=== PATIENT | female | born 1935 | race Caucasian/White ===

== ENCOUNTER → 2017-01-05 | Outpatient (CLI) | payer OTHER, BC ==
[~2017-01-05] MED LIST: ALBU1AER9 INH; ARFO15NE NEB; ASPCH81X PO; BTP80 PO; FURO-85 PO; IPRASOL4 INH; KLN5X PO; LEVO88TA PO; LVQ750 PO; SIMV-150 PO; TCMD2 PO; TZCSR180 PO; VENL75TA4 PO; VNTHFA/IN INH; WARF2TAB PO; [UNRECOGNIZED DRUG - SUPPLY]
--- NOTE | 2017-01-05 13:56 | DIAGNOSTIC IMAGING REPORT ---
CHEST CT WITHOUT CONTRAST CT DOSE: 230.01 mGy.cm HISTORY: Dyspnea. Cough. R05 Cough scheduled at [facility] [place] at 2pm/ patient aware and TECHNIQUE: Multiaxial CT images of the chest were performed without contrast. COMPARISON: 02/23/2016 FINDINGS: Appears lungs is similar. Nodularity and/or bronchiectatic changes scattered throughout the right middle and right upper lobe remains similar. Is seen to a lesser extent in the left. Minimal associated nodularity is nonprogressive. There is moderate improvement at the left base as well as right apex. There are no new or interval nodular densities at. Atherosclerotic change thoracic aorta persists. Several small mediastinal nodes are present unchanged from the prior exam. Several small shotty nodes in the axillary regions are unchanged as well. IMPRESSION: 1. No new or interval process compared to the prior study. 2. Scattered chronic nodularity versus bronchiectatic changes as discussed above. This is stable. 3. No new or interval finding. 4. Subtle improvement in nodularity right pulmonary apex and left base Electronically signed by: Abner Harris M.D. 01/05/2017 1:55 PM Dictated Date/Time: 01/05/2017 1:47 PM
== END | disposition home or self-care (01) ==
LOC: C.CTS 13:29
PROVIDERS: ATTEND Physician Assistant
DX: R05 Cough (principal)

== ENCOUNTER 2017-02-11 09:52 | Inpatient (IN) | payer OTHER, BC ==
[~2017-02-11] VITALS: Ht 154.9 cm; Wt 80.6 kg
[~2017-02-11 09:52] MED LIST changes: -ARFO15NE NEB; -LVQ750 PO; -TZCSR180 PO; -VNTHFA/IN INH
[2017-02-11] MEDS ORDERED: ALBUT/IPRATROP 3MG/0.5MG NEB 3 ML VIAL INH STA (10:56)
[2017-02-11] MEDS ORDERED: SODIUM CHLORIDE 0.9% 250ML 250 ML IV STA (10:56)
[2017-02-11] MEDS ORDERED: SODIUM CHLORIDE 0.9% 1000ML 1,000 ML IV STA (10:56)
--- NOTE | 2017-02-11 10:58 | EMERGENCY ROOM VISIT NOTE ---
History Report prepared by Esequiel: Gemma Laird Under the Supervision of: Dr. Yumiko Weir M.D. First contact with patient: 10:47 Chief Complaint: RESPIRATORY PROBLEMS Stated Complaint: TROUBLE BREATHING - COUGH History of Present Illness The patient is a 81 year old female who presents to the Emergency Room with complaints of a severe and persistent cough starting a few days ago. She has been spitting up mucous. She has some shortness of breath. The patient started having an intermittent fever yesterday. She also started having diarrhea yesterday. She reports generalized body aches. The patient denies chest pain, nausea, vomiting, or any other complaints. She has a history of Pulmonary Fibrosis. She uses an inhaler and 2 L oxygen at home. She denies any current steroids or antibiotic use. The patient also has a history of A-Fib. She is on Coumadin. Source of History: patient Onset: a few days ago Position: other (global) Symptom Intensity: severe Quality: other (cough) Timing: other (persistent) Associated Symptoms: + SOB, + diarrhea, + fevers, No chest pain, No nausea, No vomiting Review of Systems See HPI for pertinent positives & negatives. A total of 10 systems reviewed and were otherwise negative. Past Medical & Surgical Medical Problems: (1) Atrial fibrillation with RVR (2) Cough (3) Depressive Disorder Nec (4) Hypertension Nos (5) Shortness Of Breath Family History Cancer Heart disease Kidney disease Social History Smoking Status: Never Smoker Alcohol Use: none Drug Use: none Housing Status: lives alone Occupation Status: retired Current/Historical Medications Scheduled Albuterol Hfa (Ventolin Hfa), 2-4 PUFFS INH Q6H Arformoterol Tartrate (Brovana), 1 VIAL NEB BID Aspirin (Aspirin Chewable), 81 MG PO QAM Clonazepam (Clonazepam), 0.5 TAB PO HS Ipratropium-Albuterol (Duoneb), 1 TREATMENT INH BID Levothyroxine Sodium (Synthroid), 88 MCG PO QAM Simvastatin (Simvastatin), 10 MG PO HS Sotalol HCl (Sotalol HCl), 1 DOSE PO BID Venlafaxine Hcl (Effexor), 75 MG PO QAM Warfarin Sod (Coumadin), 1 TAB PO 2XWK Warfarin Sodium (Coumadin), 1.5 TAB PO 5XWK Scheduled PRN Furosemide (Lasix), 20 MG PO DAILY PRN for LEG SWELLING Allergies Coded Allergies: Iodinated Diagnostic Agents (Verified Allergy, Unknown, HIVES, 02/11/17) Penicillins (Verified Allergy, Unknown, HIVES, 02/11/17) Sulfa Antibiotics (Verified Allergy, Unknown, RASH, 02/11/17) Terfenadine (Verified Allergy, Unknown, HIVES, 02/11/17) Uncoded Allergies: seasonal (Allergy, Unknown, "nasal congestion,sneezing", 09/03/14) Physical Exam Vital Signs Date Time Temp Pulse Resp B/P Pulse Ox O2 Delivery O2 Flow Rate FiO2 02/11/17 13:46 98 20 125/69 91 Nasal Cannula 3.0 02/11/17 12:38 92 22 124/71 90 Nasal Cannula 2.0 02/11/17 11:55 122 20 127/78 92 Nasal Cannula 2.0 02/11/17 11:51 143 135/87 02/11/17 11:42 144 20 145/92 95 Nasal Cannula 2.0 02/11/17 11:39 153 136/102 02/11/17 11:37 152 20 124/99 97 Nebulizer 02/11/17 11:35 94 Nasal Cannula 2.0 02/11/17 11:12 130 02/11/17 11:00 87 Room Air 02/11/17 09:59 37.2 113 24 148/84 91 Room Air Physical Exam Vital signs reviewed. General: Well-appearing, in no significant distress. HEENT: No scleral icterus, PERRLA, neck supple. Atraumatic. Cardiovascular: Regular rate and rhythm, no extra sounds. Pulmonary: Diffuse crackles throughout the bilateral lower lung young, noted to be hypoxic on room air, moist cough. Abdomen: Soft, nontender, nondistended, positive bowel sounds. Musculoskeletal: Atraumatic, mild peripheral edema. Neurologic: Patient awake alert and oriented x 3, full strength in all 4 extremities. Cranial nerves 2 through 12 grossly intact. Skin: Warm, dry, no rash Medical Decision & Procedures ER Provider Diagnostic Interpretation: X-ray results as stated below per interpretation by me and the radiologist: CHEST ONE VIEW PORTABLE HISTORY: cough, pulm fibrosis, hypoxia, fever COMPARISON: Chest CT 01/05/2017. FINDINGS: No pneumothorax or no pleural effusions. The heart is normal in size. Peripheral and basilar reticulonodular thickening persists. This is most pronounced within the right upper lobe. There is progressive hazy opacity within the left lung base. IMPRESSION: Peripheral and basilar reticulonodular interstitial thickening persists and is similar to the prior study. However, there is slight progression of the hazy opacity within the left lung base. This may represent a superimposed pneumonia. Electronically signed by: Mikal Mauricio M.D. 02/11/2017 11:25 AM Dictated Date/Time: 02/11/2017 11:24 AM Laboratory Results Test 02/11/17 11:15 02/11/17 11:22 02/11/17 11:24 Toxic Granulation 1+ Dohle Bodies 1+ Activated Partial Thromboplast Time 57.3 SECONDS (21.0-31.0) Partial Thromboplastin Ratio 2.2 Total Bilirubin 1.1 mg/dl (0.2-1) Direct Bilirubin 0.3 mg/dl (0-0.2) Aspartate Amino Transf (AST/SGOT) 16 U/L (15-37) Alanine Aminotransferase (ALT/SGPT) 15 U/L (12-78) Alkaline Phosphatase 87 U/L (45-117) Total Creatine Kinase 101 U/L (26-192) Creatine Kinase MB 0.9 ng/ml (0.5-3.6) Creatine Kinase MB Ratio 0.9 (0-3.0) Total Protein 8.4 gm/dl (6.4-8.2) Albumin 3.2 gm/dl (3.4-5.0) Bedside Troponin I 0.030 ng/ml (0-0.045) Bedside Lactic Acid Venous 0.98 mmol/L (0.90-1.70) Laboratory results per my review. Medications Administered Medications (Trade) Dose Ordered Sig/Jesus Route Start Time Stop Time Status Last Admin Dose Admin Albuterol/ Ipratropium 3 ml 3 ml NOW STAT INH 02/11/17 10:56 02/11/17 10:59 DC 02/11/17 11:38 3 ML Sodium Chloride 250 ml @ 999 mls/hr Q16M STAT IV 02/11/17 10:56 02/11/17 11:11 DC 02/11/17 10:56 999 MLS/HR Sodium Chloride (Nss 1000ml) 1,000 ml @ 125 mls/hr Q8H STAT IV 02/11/17 10:56 02/11/17 17:01 DC 02/11/17 11:38 125 MLS/HR Metoprolol Tartrate (Lopressor Iv) 5 mg NOW STAT IV 02/11/17 11:29 02/11/17 11:30 DC 02/11/17 11:39 5 MG Metoprolol Tartrate (Lopressor Iv) 5 mg NOW STAT IV 02/11/17 11:47 02/11/17 11:48 DC 02/11/17 11:51 5 MG Diltiazem HCl (Cardizem Inj) 10 mg NOW STAT IV 02/11/17 12:15 02/11/17 12:16 DC 02/11/17 12:15 10 MG Levofloxacin (Levaquin / D5W) 750 mg NOW STAT IV 02/11/17 13:10 02/11/17 13:11 DC 02/11/17 13:42 750 MG ECG Indication: SOB/dyspnea Rate (beats per minute): 143 Rhythm: atrial fibrillation (rapid) Findings: nonspecific-ST abn (lateral), other (Repolarization abnormalities) ED Course 1047: Past medical records reviewed. The patient was evaluated in room C07. A complete history and physical examination was performed. 1056: Sodium Chloride 1000 ml @ 125 mls/hr IV, Sodium Chloride 250 ml @ 999 mls/ hr IV, DuoNeb 3 ml INH 1129: Lopressor IV 5 mg IV 1147: Lopressor IV 5 mg IV 1215: Cardizem Inj 10 mg IV 1310: Levofloxacin 750 mg IV. Upon reevaluation, the patient is resting comfortably. I discussed laboratory and radiographic results with the patient. She verbalized agreement of the treatment plan. I spoke with Dr. Sanchez of the [facility]. The patient will be evaluated for further management and care. Medical Decision Differential diagnosis: Etiologies such as infections, reactive airway disease, pneumonia, pneumothorax , COPD, CHF, cardiac ischemia, pulmonary embolism, musculoskeletal, gastrointestinal, as well as others were entertained. This patient was evaluated and appeared to be in no significant distress. IV access was obtained and laboratory work was drawn. Patient's laboratory work reveals a marked leukocytosis. She is found to be in a rapid atrial fibrillation. The patient was medicated with IV metoprolol 2. Patient persisted with her rapid atrial fibrillation. Patient was given IV Cardizem 10 mg. Chest x-ray reveals a likely pneumonia. Blood cultures were obtained. The patient was medicated with IV Levaquin. The patient is found to be hypoxic on room air. I did discuss case with Dr. Sanchez of the hospitalist service. She has agreed to evaluate the patient for admission and further management. The patient was made aware of plan and agrees. Consults Time Called: 1309 Consulting Physician: Dr. Sanchez of the [facility] Returned Call: [address] Sanchez of the [facility]. Impression Primary Impression: Pneumonia Additional Impressions: Hypoxia Rapid atrial fibrillation Scribe Attestation The scribe's documentation has been prepared under my direction and personally reviewed by me in its entirety. I confirm that the note above accurately reflects all work, treatment, procedures, and medical decision making performed by me. Departure Information Dispostion Being Evaluated By Hospitalist Referrals Simba Alcazar PA-C (PCP) Patient Instructions My [facility] Health Problem Qualifiers
--- NOTE | 2017-02-11 11:26 | DIAGNOSTIC IMAGING REPORT ---
CHEST ONE VIEW PORTABLE HISTORY: cough, pulm fibrosis, hypoxia, fever COMPARISON: Chest CT 01/05/2017. FINDINGS: No pneumothorax or no pleural effusions. The heart is normal in size. Peripheral and basilar reticulonodular thickening persists. This is most pronounced within the right upper lobe. There is progressive hazy opacity within the left lung base. IMPRESSION: Peripheral and basilar reticulonodular interstitial thickening persists and is similar to the prior study. However, there is slight progression of the hazy opacity within the left lung base. This may represent a superimposed pneumonia. Electronically signed by: Mikal Mauricio M.D. 02/11/2017 11:25 AM Dictated Date/Time: 02/11/2017 11:24 AM
[2017-02-11] MEDS ORDERED: METOPROLOL TARTRATE 1 MG/ML VIAL IV STA ×2 (11:29→11:47)
[2017-02-11] MEDS ORDERED: METOPROLOL TARTRATE 1 MG/ML VIAL ONE ×2 (11:30→11:47)
[2017-02-11 11:43] LABS: HEMATOCRIT 39.5 % (37-47); MEAN CELL VOLUME 91.9 fL (80-100); MEAN CORPUSCULAR HEMOGLOBIN 31.2 pg (25-34); MEAN CORPUSCULAR HGB CONC 33.9 g/dl (32-36); PLATELET COUNT 227 K/uL (130-400); WHITE BLOOD COUNT 14.34 K/uL (4.8-10.8)
[2017-02-11 12:00] LABS: PARTIAL THROMBOPLASTIN RATIO 2.2; PROTHROMBIN TIME (PATIENT) 56.3 SECONDS (9.0-12.0)
[2017-02-11 12:09] LABS: BASO % 0.1 %; BASO ABS # 0.02 K/uL (0-0.2); COMPLETE YES; DOHLE BODIES 1+; EOS % 0.3 %; IG% 0.3 %; LYMPH % 6.7 %; LYMPH ABS # 0.96 K/uL (1.2-3.4); MONO % 9.3 %; NEUT % 83.3 %; TOXIC GRANULATION 1+
[2017-02-11] MEDS ORDERED: DILTIAZEM HCL 5 MG/ML 5 ML VIAL IV STA ×2 (12:15→14:47)
[2017-02-11 12:22] LABS: BUN/CREATININE RATIO 26.2 (10-20); CALCIUM 9.1 mg/dl (8.5-10.1); CREATININE 0.56 mg/dl (0.60-1.20); MAGNESIUM 2.1 mg/dl (1.8-2.4); POTASSIUM 3.7 mmol/L (3.5-5.1)
[2017-02-11 12:27] LABS: CKMB/CK RATIO 0.9 (0-3.0)
[2017-02-11] MEDS ORDERED: VNTHFA/IN INH (12:35)
[2017-02-11 12:39] LABS: INR 4.9 (0.9-1.1)
[2017-02-11] MEDS ORDERED: LEVAQUIN 750MG / 150ML D5W IV STA (13:10)
[2017-02-11] MEDS ORDERED: METOPROLOL TARTRATE 1 MG/ML VIAL IV. PRN (14:15)
[2017-02-11] MEDS ORDERED: ACETAMINOPHEN 325 MG TAB PO PRN (14:15)
[2017-02-11] MEDS ORDERED: ONDANSETRON INJ 2 MG/ML 2 ML VIAL IV PRN (14:15)
[2017-02-11] MEDS ORDERED: POLYETHYLENE (MIRALAX) 17 GM PACK PO PRN (14:15)
[2017-02-11] MEDS ORDERED: ALUMINUM/MAGNESIUM/SIMETH (MAALOX MAX) 30 ML UDC PO PRN (14:15)
[2017-02-11] MEDS ORDERED: MAGNESIUM HYDROXIDE SUSP 30 ML UDC PO PRN (14:15)
[2017-02-11] MEDS ORDERED: ARFO15NE NEB (14:28)
[2017-02-11] MEDS ORDERED: FUROSEMIDE 20 MG TAB PO PRN (14:30)
[2017-02-11] MEDS ORDERED: DILTIAZEM HCL 5 MG/ML 5 ML VIAL IV PRN (15:00)
--- NOTE | 2017-02-11 15:12 | History and Physical ---
History & Physical Date & Time of Service: Feb 11, 2017 at 14:30 Chief Complaint: Trouble Breathing - Cough Primary Care Physician: Simba Alcazar PA-C History of Present Illness Source: patient, family (daughter at bedside), clinic records, hospital records This is an 81 y/o female with a history of pulmonary fibrosis, atrial fibrillation, coronary artery disease, hypertension, hyperlipidemia, hypothyroidism and depression who presented to the ED on 02/11 with productive cough, shortness breath, and fever x 3 days. The patient states that she does have chronic cough, however, about 3 days ago her cough began to become more severe and productive green sputum. The patient also began to experience worsening shortness of breath, dyspnea on exertion, wheezing, intermittent fevers, weakness and fatigue. The patient typically wears 2 L of oxygen at nighttime, but recently she has been using oxygen more during the day, as well as using her prn nebulizers and inhalers, which have helped her symptoms. She states that she has had little appetite lately and has been intermittently nauseous. She denies vomiting. She also developed diarrhea yesterday. She denies any melena or hematochezia. She is now experiencing generalized body aches secondary to prolonged severe coughing. The patient was in A. fib with RVR on arrival to the ED. At that time, the patient states that she felt palpitations. The patient denies chest pain, claudication, vomiting, abdominal pain, dysuria, hematuria, urinary retention, paralysis, motor weakness, numbness and tingling. Past Medical/Surgical History Medical Problems: (1) Cough Status: Chronic (2) Depressive Disorder Nec Status: Resolved (3) Hypertension Nos Status: Chronic HLD Hypothyroidism A-fib on Coumadin Pulmonary fibrosis Family History Cancer Heart disease Kidney disease Social History Smoking Status: Never Smoker Smokeless Tobacco Use: No Alcohol Use: none Drug Use: none Marital Status: Housing status: lives alone Occupational Status: retired Allergies Coded Allergies: Iodinated Diagnostic Agents (Verified Allergy, Unknown, HIVES, 02/11/17) Penicillins (Verified Allergy, Unknown, HIVES, 02/11/17) Sulfa Antibiotics (Verified Allergy, Unknown, RASH, 02/11/17) Terfenadine (Verified Allergy, Unknown, HIVES, 02/11/17) Uncoded Allergies: seasonal (Allergy, Unknown, "nasal congestion,sneezing", 09/03/14) Home Medications Scheduled Albuterol Hfa (Ventolin Hfa), 2-4 PUFFS INH Q6H Arformoterol Tartrate (Brovana), 1 VIAL NEB BID Aspirin (Aspirin Chewable), 81 MG PO QAM Clonazepam (Clonazepam), 0.5 TAB PO HS Ipratropium-Albuterol (Duoneb), 1 TREATMENT INH BID Levothyroxine Sodium (Synthroid), 88 MCG PO QAM Simvastatin (Simvastatin), 10 MG PO HS Sotalol HCl (Sotalol HCl), 1 DOSE PO BID Venlafaxine Hcl (Effexor), 75 MG PO QAM Warfarin Sod (Coumadin), 1 TAB PO 2XWK Warfarin Sodium (Coumadin), 1.5 TAB PO 5XWK Scheduled PRN Furosemide (Lasix), 20 MG PO DAILY PRN for LEG SWELLING Review of Systems Constitutional: + chills, + fatigue, + fever, + sweats, + weakness Eyes: No diplopia, No eye pain, No worsening of vision ENT: No hearing loss, No sore throat, No trouble swallowing Respiratory: + cough, + dyspnea on exertion, + shortness of breath, + sputum ( green), + wheezing, No hemoptysis Cardiovascular: + palpitations, No chest pain, No claudication, No edema Abdomen: + diarrhea, + nausea, + problem reported (decreased appetite), No GI bleeding, No pain, No vomiting Musculoskeletal: + muscle pain (generalized myalgias), No joint pain, No swelling Genitourinary - Female: No dysuria, No hematuria, No urinary retention Neurologic: No numbness/tingling, No paralysis, No weakness Integumentary: No color change, No itch, No rash Physical Exam Vital Signs Date Time Temp Pulse Resp B/P Pulse Ox O2 Delivery O2 Flow Rate FiO2 02/11/17 14:30 138 02/11/17 13:46 98 20 125/69 91 Nasal Cannula 3.0 02/11/17 12:38 92 22 124/71 90 Nasal Cannula 2.0 02/11/17 11:55 122 20 127/78 92 Nasal Cannula 2.0 02/11/17 11:51 143 135/87 02/11/17 11:42 144 20 145/92 95 Nasal Cannula 2.0 02/11/17 11:39 153 136/102 02/11/17 11:37 152 20 124/99 97 Nebulizer 02/11/17 11:35 94 Nasal Cannula 2.0 02/11/17 11:12 130 02/11/17 11:00 87 Room Air 02/11/17 09:59 37.2 113 24 148/84 91 Room Air General Appearance: WD/WN, no apparent distress, + obese Head: normocephalic, atraumatic Eyes: normal inspection, PERRL, EOMI ENT: normal ENT inspection, hearing grossly normal, pharynx normal Neck: supple, no JVD, trachea midline Respiratory/Chest: no respiratory distress, + crackles, + wheezing, + pertinent finding (patient with wet cough and audible wheezing on exam) Cardiovascular: no gallop, no murmur, + tachycardia, + irregularly irregular Abdomen/GI: normal bowel sounds, non tender, soft Extremities/Musculoskelatal: normal inspection, no calf tenderness, no pedal edema Neurologic/Psych: alert, normal mood/affect, oriented x 3 Skin: normal color, warm/dry, no rash Diagnostics Laboratory Results Results Past 24 Hours Test 02/11/17 11:15 02/11/17 11:22 02/11/17 11:24 Range/Units White Blood Count 14.34 4.8-10.8 K/uL Red Blood Count 4.30 4.2-5.4 M/uL Hemoglobin 13.4 12.0-16.0 g/dL Hematocrit 39.5 37-47 % Mean Corpuscular Volume 91.9 80-100 fL Mean Corpuscular Hemoglobin 31.2 25-34 pg Mean Corpuscular Hemoglobin Concent 33.9 32-36 g/dl Platelet Count 227 130-400 K/uL Mean Platelet Volume 10.0 7.4-10.4 fL Neutrophils (%) (Auto) 83.3 % Lymphocytes (%) (Auto) 6.7 % Monocytes (%) (Auto) 9.3 % Eosinophils (%) (Auto) 0.3 % Basophils (%) (Auto) 0.1 % Neutrophils # (Auto) 11.94 1.4-6.5 K/uL Lymphocytes # (Auto) 0.96 1.2-3.4 K/uL Monocytes # (Auto) 1.34 0.11-0.59 K/uL Eosinophils # (Auto) 0.04 0-0.5 K/uL Basophils # (Auto) 0.02 0-0.2 K/uL RDW Standard Deviation 45.6 36.4-46.3 fL RDW Coefficient of Variation 13.7 11.5-14.5 % Immature Granulocyte % (Auto) 0.3 % Immature Granulocyte # (Auto) 0.04 0.00-0.02 K/uL Toxic Granulation 1+ Dohle Bodies 1+ Prothrombin Time 56.3 9.0-12.0 SECONDS Prothromb Time International Ratio 4.9 0.9-1.1 Activated Partial Thromboplast Time 57.3 21.0-31.0 SECONDS Partial Thromboplastin Ratio 2.2 Sodium Level 134 136-145 mmol/L Potassium Level 3.7 3.5-5.1 mmol/L Chloride Level 97 98-107 mmol/L Carbon Dioxide Level 27 21-32 mmol/L Anion Gap 10.0 3-11 mmol/L Blood Urea Nitrogen 15 7-18 mg/dl Creatinine 0.56 0.60-1.20 mg/dl Est Creatinine Clear Calc Drug Dose 73.8 ml/min Estimated GFR () 99.9 Estimated GFR (Non- 86.2 BUN/Creatinine Ratio 26.2 10-20 Random Glucose 91 70-99 mg/dl Calcium Level 9.1 8.5-10.1 mg/dl Magnesium Level 2.1 1.8-2.4 mg/dl Total Bilirubin 1.1 0.2-1 mg/dl Direct Bilirubin 0.3 0-0.2 mg/dl Aspartate Amino Transf (AST/SGOT) 16 15-37 U/L Alanine Aminotransferase (ALT/SGPT) 15 12-78 U/L Alkaline Phosphatase 87 45-117 U/L Total Creatine Kinase 101 26-192 U/L Creatine Kinase MB 0.9 0.5-3.6 ng/ml Creatine Kinase MB Ratio 0.9 0-3.0 Total Protein 8.4 6.4-8.2 gm/dl Albumin 3.2 3.4-5.0 gm/dl Bedside Troponin I 0.030 0-0.045 ng/ml Bedside Lactic Acid Venous 0.98 0.90-1.70 mmol/L Microbiology Results 02/11/17 Blood Culture, Received Pending 02/11/17 Blood Culture, Received Pending Diagnostic Radiology Reviewed the following studies and agree with interpretation as follows: Patient Name: RUBINA MACDONALD Unit Number: [id number] Dictated: 02/11/171123 Transcribed: 02/11/171123 [facility] Printed Date/Time: [~ rep prt dt]/[~ rep prt tm] [~ rep ct labl] - [~ rep ct ivnm] [facility] [place] [address] Dictated: 02/11/171123 Transcribed: 02/11/171123 [place] Printed Date/Time: [~ rep prt dt]/[~ rep prt tm] [~ rep ct labl] - [~ rep ct ivnm] Patient: RUBINA MACDONALD Address1: [address] [place] [address] Rec: [id number] Address2: [facility] Acct ID: [id number] [facility] Zip: [place] [address] Date: 1935 Sex: F Room/Bed: Ref Phy: Simba Alcazar PA-C SC: FRANCK Att Phy: Report #: [id number] Kayla Phy: Simba Alcazar PA-C Test: [id number] Admit Phy: Director Gift: HANS Interpreting Phy: Mikal Mauricio MD Diagnosis: TROUBLE BREATHING - COUGH Ordering Phy: Yumiko Weir M.D. Service Date: 02/11/17 Admit Date: 02/11/17 MNE: [id number] CONF: DICTATED BY: Mikal Mauricio M.D.]] CC: Yumiko Weir M.D. Smith, Steve M., PA-C Endcc: [~ rep ct add3]] CHEST ONE VIEW PORTABLE HISTORY: cough, pulm fibrosis, hypoxia, fever COMPARISON: Chest CT 01/05/2017. FINDINGS: No pneumothorax or no pleural effusions. The heart is normal in size. Peripheral and basilar reticulonodular thickening persists. This is most pronounced within the right upper lobe. There is progressive hazy opacity within the left lung base. IMPRESSION: Peripheral and basilar reticulonodular interstitial thickening persists and is similar to the prior study. However, there is slight progression of the hazy opacity within the left lung base. This may represent a superimposed pneumonia. Electronically signed by: Mikal Mauricio M.D. 02/11/2017 11:25 AM Dictated Date/Time: 02/11/2017 11:24 AM The status of this report is Signed. Draft = Not yet reviewed or approved by Radiologist. Signed = Reviewed and approved by Radiologist. <AttendingPhy></AttendingPhy> <FamilyPhy>Simba Alcazar PA-C</FamilyPhy> < PrimaryPhy>Simba Alcazar PA-C</PrimaryPhy> <UnitNumber>[id number]</UnitNumber > <VisitNumber>[id number]</VisitNumber> <PatientName>RUBINA MACDONALD</ PatientName> <DateOfBirth>1935</DateOfBirth> <Location>[facility]</Location> < ServiceDate>02/11/17</ServiceDate> <MNE>ESINDI</MNE> <OrderingPhy>Yumiko Weir M.D.</OrderingPhy> <OrderingPhyMNE>f rep ord dr lopez</OrderingPhyMNE> < DictatingPhyMNE>f rep dict dr lopez</DictatingPhyMNE> <CCListMNE>f rep ct jessica</ CCListMNE> <AdmittingPhyMNE>f pt admit dr lopez</AdmittingPhyMNE> <AttendingPhyMNE >f pt attend dr lopez</AttendingPhyMNE> <ConsultingPhyMNE>f pt consult dr lopez</ConsultingPhyMNE> <FamilyPhyMNE>f pt fam dr lopez</FamilyPhyMNE> <OtherPhyMNE>f pt other dr lopez</OtherPhyMNE> < PrimaryPhyMNE>f pt prim care dr lopez</PrimaryPhyMNE> <ReferringPhyMNE>f pt referring dr lopez</ReferringPhyMNE> EKG Reviewed EKG and agree with interpretation as follows: 143 bpm, afib with RVR 96 bpm, sinus rhythm with sinus arrhythmia Impression Assessment and Plan 81 y/o female with a history of pulmonary fibrosis, atrial fibrillation on warfarin, coronary artery disease, hypertension, hyperlipidemia, hypothyroidism and depression who presented to the ED on 02/11 with productive cough, shortness breath, and fever x 3 days. Patient afebrile and ED. Patient in A. fib with RVR on arrival. She received Lopressor 5 mg IV 2 doses, then Cardizem 10 mg IV 1, which did convert the patient back to normal sinus rhythm. During my examination, however, she is again flipping in and out of A. fib, with heart rate back up to the 140s to 150s. Patient became hypoxic on room air at 87%, currently oxygenating well on 3 L. CXR shows persistent interstitial thickening with increased hazy opacity in the left lung base. WBC elevated at 14.34. INR supratherapeutic at 4.9. A. fib with RVR--HR currently 140s-150s, flipping in and out of afib -Admit to telemetry for cardiac monitoring -Cardizem 10 mg IV 1 now STAT -Cardizem 5 mg IV q6h prn tachycardia HR >120. Can give another 5 mg IV if needed after 15 min -Continue sotalol 80 mg PO BID Community-acquired pneumonia LLL -Levaquin 750 mg IV qd -Duonebs QIDR and q2h prn SOB/wheezing -Mucinex 600 mg PO BID -Tessalon Perles 100 mg PO TID -Incentive spirometry -Obtain sputum culture if able Supratherapeutic INR -INR 4.9 on arrival -Hold warfarin -No s/s of active bleeding Pulmonary fibrosis -Continue Brovana neb BID HTN--stable -Continue sotalol as above HLD -Continue simvastatin 10 mg PO qd Hypothyroidism -Continue Synthroid 88 mcg PO qd Depression -Continue Effexor 75 mg PO qd and Klonopin 0.25 mg PO qhs DVT prophylaxis -KD roberts and LATRICIAs Code Status -Level I, FULL RESUSCITATION STATUS This chart was completed in part utilizing [employer] Speech Voice Recognition software. Attempts were made to minimize the grammatical errors, random word insertions, pronoun errors and incomplete sentences. Any formal questions or concerns about the content, text or information contained within the body of this dictation should be directly addressed to the provider for clarification. Level of Care Telemetry Resuscitation Status FULL RESUSCITATION VTE Prophylaxis VTE Risk Assessment Done? Y/N: Yes Risk Level: Moderate Given or contraindicated: Allan [place], SCD's Reviewed: Pt Seen/Exam by Me History Pt states she is feeling better, but her breathing is still a bit "shaky". 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 She had not been able to eat for the last 2 days due to being so SOB as well. She tried her nebulizer at home, but this did not help. No chest pain. Agree with HPI/ROS as noted above. General Appearance: WD/WN, no apparent distress Respiratory: no respiratory distress, wheezing (expiratory and inspiratory) Cardiovascular: normal peripheral pulses, irregularly irregular Gastrointestinal: non tender, soft Extremities: non-tender, pedal edema (1+) Neurologic/Psychiatric: alert, normal mood/affect Skin Characteristics: normal color, warm/dry Assessment/Plan Agree with plan as outlined above Hypoxic respiratory failure in the setting of CAP and known pulmonary fibrosis Levaquin, nebs, mucinex, tesslon pearls Afib with RVR, known dx Continue with cardizem PRN, t/c drip if ongoing issues Tele monitor until stable Elevated INR: in the setting of inability to take PO Monitor with abx use
[2017-02-11 16:15] VITALS: BP 130/81; PULSE 140; TEMP 37; O2SAT 90
[2017-02-11] MEDS: ALBUT/IPRATROP 3MG/0.5MG NEB 3 ML VIAL INH SCH ×2 (17:22→20:03)
[2017-02-11 17:58] VITALS: Ht 154.9 cm; Wt 80.6 kg
[2017-02-11] MEDS ORDERED: DILTIAZEM BOLUS / DRIP IV STA (18:11)
[2017-02-11] MEDS: DILTIAZEM HCL INJ 125 MG in DEXTROSE 5% 100ML IV PRN (19:14)
[2017-02-11 19:20] VITALS: PULSE 84; O2SAT 95
[2017-02-11 19:43] VITALS: BP 141/77; PULSE 143; TEMP 36.8; O2SAT 94
[2017-02-11] MEDS: ARFORMOTEROL TART 15MCG/2ML VIAL INH SCH (20:03)
[2017-02-11] MEDS: CLONAZEPAM 0.5 MG TAB PO SCH (21:00)
[2017-02-11] MEDS: GUAIFENESIN 600 MG TABCR PO SCH (21:21)
[2017-02-11] MEDS: BENZONATATE 100MG CAP PO SCH (21:21)
[2017-02-11] MEDS: SIMVASTATIN 10 MG TAB PO SCH (21:21)
[2017-02-11] MEDS: SOTALOL HCL 80 MG TAB PO SCH (21:22)
[2017-02-12] VITALS (13 sets, daily range): BP systolic 100–149; BP diastolic 63–71; PULSE 75–106; TEMP 36.3–37.5; O2SAT 90–94
[2017-02-12] MEDS: LEVOTHYROXINE 88 MCG TAB PO SCH (05:21)
[2017-02-12] MEDS: DILTIAZEM HCL INJ 125 MG in DEXTROSE 5% 100ML IV PRN ×2 (05:23→17:50)
[2017-02-12 06:35] LABS: BASO % 0.2 %; BASO ABS # 0.03 K/uL (0-0.2); COMPLETE YES; EOS % 0.4 %; HEMATOCRIT 37.9 % (37-47); IG% 0.3 %; LYMPH % 10.4 %; LYMPH ABS # 1.43 K/uL (1.2-3.4); MEAN CELL VOLUME 91.3 fL (80-100); MEAN CORPUSCULAR HEMOGLOBIN 30.4 pg (25-34); MEAN CORPUSCULAR HGB CONC 33.2 g/dl (32-36); MONO % 10.8 %; NEUT % 77.9 %; PLATELET COUNT 218 K/uL (130-400); RED BLOOD COUNT 4.15 M/uL (4.2-5.4); WHITE BLOOD COUNT 13.75 K/uL (4.8-10.8)
[2017-02-12 06:50] LABS: PROTHROMBIN TIME (PATIENT) 80.4 SECONDS (9.0-12.0)
[2017-02-12 06:58] LABS: INR 6.9 (0.9-1.1)
[2017-02-12 07:06] LABS: BUN/CREATININE RATIO 23.5 (10-20); CALCIUM 8.8 mg/dl (8.5-10.1); CREATININE 0.59 mg/dl (0.60-1.20); POTASSIUM 3.4 mmol/L (3.5-5.1)
[2017-02-12] MEDS: ARFORMOTEROL TART 15MCG/2ML VIAL INH SCH ×2 (07:20→20:10)
[2017-02-12] MEDS: ALBUT/IPRATROP 3MG/0.5MG NEB 3 ML VIAL INH SCH ×4 (08:00→20:10)
[2017-02-12] MEDS: ASPIRIN 81 MG ECTAB PO SCH (08:03)
[2017-02-12] MEDS: SOTALOL HCL 80 MG TAB PO SCH ×2 (08:04→19:30)
[2017-02-12] MEDS: BENZONATATE 100MG CAP PO SCH ×3 (08:04→19:32)
[2017-02-12] MEDS: GUAIFENESIN 600 MG TABCR PO SCH ×2 (08:04→19:30)
[2017-02-12] MEDS: VENLAFAXINE HCL XR 75 MG CAPXR PO SCH (08:04)
[2017-02-12] MEDS: LEVOFLOXACIN / D5W 750 MG in PREMIXED IN D5W 150 ML IV SCH (14:20)
[2017-02-12] MEDS ORDERED: POTASSIUM CHLORIDE 10 MEQ TABCR PO STA (16:05)
--- NOTE | 2017-02-12 16:08 | Progress Note ---
Subjective Date of Service: Feb 12, 2017. Subjective Pt evaluation today including: conversation w/ patient, conversation w/ family , physical exam, chart review, lab review, review of studies, review of inpatient medication list Feeling well, no complaining, no fever and chill, report some dry cough Is on Cardizem drip for heart rate control, which is controlled Problem List Medical Problems: (1) Hypoxia Status: Acute (2) Pneumonia Status: Acute (3) Rapid atrial fibrillation Status: Acute Review of Systems Constitutional: + fatigue, + weakness, No chills, No fever, No problem reported , No sweats, No weight loss Eyes: No diplopia, No discharge, No eye pain, No redness, No worsening of vision ENT: No dental problems, No hearing loss, No nasal symptoms, No sore throat, No tinnitus, No trouble swallowing, No unusual epistaxis Respiratory: + cough, No dyspnea at rest, No dyspnea on exertion, No hemoptysis , No shortness of breath, No sputum, No wheezing Cardiac: No PND, No chest pain, No claudication, No edema, No orthopnea, No palpitations Abdomen: No constipation, No diarrhea, No nausea, No pain, No vomiting Musculoskeletal: No calf pain, No joint pain, No muscle pain, No swelling Female : No abnormal vaginal bleeding, No dysuria, No hematuria, No incontinence, No urinary frequency, No vaginal discharge Neurologic: No balance problems, No memory loss, No numbness/tingling, No paralysis, No vertigo, No weakness Psychiatric: No anhedonism, No anxiety, No depression symptoms, No insomnia, No substance abuse Heme: No abnormal bleeding/bruising, No clotting problems, No night sweats, No swollen lymph nodes Endo: No excessive thirst, No excessive urination, No fatigue Skin: No bleeding, No color change, No itch, No new/changing skin lesions, No rash Objective Vital Signs Date Time Temp Pulse Resp B/P Pulse Ox O2 Delivery O2 Flow Rate FiO2 02/12/17 12:00 Nasal Cannula 2.0 02/12/17 11:27 36.9 75 16 102/64 90 Room Air 02/12/17 11:16 76 18 91 Room Air 02/12/17 08:00 Nasal Cannula 2.0 02/12/17 07:46 36.9 80 16 109/66 90 2.0 02/12/17 07:20 80 18 93 Room Air 02/12/17 04:00 Nasal Cannula 3.0 02/12/17 03:52 37.5 85 18 106/63 92 Nasal Cannula 2.0 02/12/17 00:01 37.1 96 19 100/64 93 Nasal Cannula 2.0 02/12/17 00:00 Nasal Cannula 3.0 02/11/17 20:00 Nasal Cannula 3.0 02/11/17 19:43 36.8 143 16 141/77 94 Nasal Cannula 2.0 02/11/17 19:20 84 18 95 Room Air 02/11/17 17:58 Nasal Cannula 3.0 02/11/17 16:15 37.0 140 24 130/81 90 Nasal Cannula 3.0 Physical Exam General Appearance: WD/WN, no apparent distress, + obese Eyes: normal inspection, PERRL, EOMI, sclerae normal ENT: normal ENT inspection, hearing grossly normal, pharynx normal Neck: supple, no adenopathy, thyroid normal, no JVD, no carotid bruits, trachea midline Respiratory/Chest: chest non-tender, lungs clear, normal breath sounds, no respiratory distress, no accessory muscle use, + decreased breath sounds Cardiovascular: no edema, no gallop, no JVD, no murmur, + irregularly irregular Abdomen: normal bowel sounds, non tender, soft, no organomegaly, no pulsatile mass Extremities: normal range of motion, non-tender, normal inspection, no pedal edema, no calf tenderness, normal capillary refill, pelvis stable Neurologic/Psychiatric: 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, no motor/sensory deficits, alert, normal mood/affect, oriented x 3 Skin: normal color, warm/dry, no rash Lymphatic: no adenopathy Laboratory Results Last 24 Hours Test 02/12/17 06:03 White Blood Count 13.75 K/uL Red Blood Count 4.15 M/uL Hemoglobin 12.6 g/dL Hematocrit 37.9 % Mean Corpuscular Volume 91.3 fL Mean Corpuscular Hemoglobin 30.4 pg Mean Corpuscular Hemoglobin Concent 33.2 g/dl Platelet Count 218 K/uL Mean Platelet Volume 10.0 fL Neutrophils (%) (Auto) 77.9 % Lymphocytes (%) (Auto) 10.4 % Monocytes (%) (Auto) 10.8 % Eosinophils (%) (Auto) 0.4 % Basophils (%) (Auto) 0.2 % Neutrophils # (Auto) 10.71 K/uL Lymphocytes # (Auto) 1.43 K/uL Monocytes # (Auto) 1.48 K/uL Eosinophils # (Auto) 0.06 K/uL Basophils # (Auto) 0.03 K/uL RDW Standard Deviation 45.1 fL RDW Coefficient of Variation 13.7 % Immature Granulocyte % (Auto) 0.3 % Immature Granulocyte # (Auto) 0.04 K/uL Prothrombin Time 80.4 SECONDS Prothromb Time International Ratio 6.9 Sodium Level 133 mmol/L Potassium Level 3.4 mmol/L Chloride Level 98 mmol/L Carbon Dioxide Level 27 mmol/L Anion Gap 8.0 mmol/L Blood Urea Nitrogen 14 mg/dl Creatinine 0.59 mg/dl Est Creatinine Clear Calc Drug Dose 69.2 ml/min Estimated GFR () 98.2 Estimated GFR (Non- 84.8 BUN/Creatinine Ratio 23.5 Random Glucose 98 mg/dl Calcium Level 8.8 mg/dl Assessment and Plan 81 y/o female date on 02/11/2017 because of community-acquired pneumonia with with productive cough, shortness breath, and fever x 3 days, and A. fib with rapid ventricular response A. fib with RVR Rate control on the drip HR was up 140s-150s, pulse admission continue Cardizem drip -Cardizem 5 mg IV q6h prn tachycardia HR >120. Can give another 5 mg IV if needed after 15 min -Continue sotalol 80 mg PO BID Community-acquired pneumonia LLL, stable continue current medication, follow-up sputum culture -Levaquin 750 mg IV qd -Duonebs QIDR and q2h prn SOB/wheezing -Mucinex 600 mg PO BID -Tessalon Perles 100 mg PO TID -Incentive spirometry Supratherapeutic INR -INR 4.9 on arrival, today is higher at 6.9, patient has no signs of bleeding -Hold warfarin -Follow-up PT/INR tomorrow and watch for sign of bleeding Pulmonary fibrosis -Continue Brovana neb BID HTN--stable -Continue sotalol as above HLD -Continue simvastatin 10 mg PO qd Hypothyroidism -Continue Synthroid 88 mcg PO qd, check TSH Depression -Continue Effexor 75 mg PO qd and Klonopin 0.25 mg PO qhs DVT prophylaxis -KD roberts and Avi Code Status -Level I, FULL RESUSCITATION STATUS Continued [facility] stay due to: multiple IV medications needed Discharge planning: home
[2017-02-12] MEDS ORDERED: NURSING VERBAL MED ORDER ONE ×2 (18:45)
[2017-02-12] MEDS: SIMVASTATIN 10 MG TAB PO SCH (19:31)
[2017-02-12] MEDS: CLONAZEPAM 0.5 MG TAB PO SCH (19:33)
[2017-02-13] VITALS (11 sets, daily range): BP systolic 101–121; BP diastolic 63–72; PULSE 74–83; TEMP 36.6–37.1; O2SAT 91–98
[2017-02-13] MEDS: DILTIAZEM HCL INJ 125 MG in DEXTROSE 5% 100ML IV PRN ×3 (03:31→19:38)
[2017-02-13] MEDS: LEVOTHYROXINE 88 MCG TAB PO SCH (05:35)
[2017-02-13 06:56] LABS: BASO % 0.2 %; BASO ABS # 0.02 K/uL (0-0.2); COMPLETE YES; EOS % 2.8 %; HEMATOCRIT 36.4 % (37-47); IG% 0.5 %; LYMPH ABS # 1.48 K/uL (1.2-3.4); MEAN CORPUSCULAR HEMOGLOBIN 30.8 pg (25-34); MEAN CORPUSCULAR HGB CONC 33.8 g/dl (32-36); MEAN PLATELET VOLUME 9.8 fL (7.4-10.4); MONO % 13.1 %; NEUT % 71.4 %; PLATELET COUNT 227 K/uL (130-400); WHITE BLOOD COUNT 12.38 K/uL (4.8-10.8)
[2017-02-13 07:08] LABS: PROTHROMBIN TIME (PATIENT) 55.4 SECONDS (9.0-12.0)
[2017-02-13 07:22] LABS: INR 4.8 (0.9-1.1)
[2017-02-13] MEDS: ARFORMOTEROL TART 15MCG/2ML VIAL INH SCH ×2 (07:25→20:00)
[2017-02-13] MEDS: ALBUT/IPRATROP 3MG/0.5MG NEB 3 ML VIAL INH SCH ×4 (07:35→20:00)
[2017-02-13 07:37] LABS: BUN/CREATININE RATIO 31.5 (10-20); CALCIUM 8.6 mg/dl (8.5-10.1); CREATININE 0.59 mg/dl (0.60-1.20); MAGNESIUM 2.1 mg/dl (1.8-2.4); POTASSIUM 3.4 mmol/L (3.5-5.1)
[2017-02-13] MEDS ORDERED: POTASSIUM CHLORIDE 10 MEQ TABCR PO ONE (08:15)
[2017-02-13] MEDS: VENLAFAXINE HCL XR 75 MG CAPXR PO SCH (09:16)
[2017-02-13] MEDS: SOTALOL HCL 80 MG TAB PO SCH ×2 (09:16→19:40)
[2017-02-13] MEDS: BENZONATATE 100MG CAP PO SCH ×3 (09:16→19:41)
[2017-02-13] MEDS: ASPIRIN 81 MG ECTAB PO SCH (09:16)
[2017-02-13] MEDS: GUAIFENESIN 600 MG TABCR PO SCH ×2 (09:16→19:40)
--- NOTE | 2017-02-13 11:30 | Hospitalist Progress Note ---
Hospitalist Progress Note Date of Service Feb 13, 2017. Subjective Pt evaluation today including: conversation w/ patient, physical exam, chart review, lab review, review of studies, review of inpatient medication list Patient seen and evaluated. No acute events overnight. Patient remains on Cardizem drip with adequate control of heart rate and blood pressure adequate. On exam she is currently in normal sinus rhythm. Continues to complain of a productive cough of thick sputum. She denies hemoptysis or other signs of active bleeding. INR 4.8 and will continue to hold Coumadin as signs of active bleeding. She verbalizes no other complaints at this time. Additional Comments: REVIEW OF SYSTEMS: General/Constitutional: +fatigue (poor sleep); Denies fever/chills, weakness ENT: Denies visual changes, nasal drainage, hearing loss, sore throat, trouble swallowing Cardiovascular: Denies chest pain, palpitations, edema Respiratory: +cough, +sputum; Denies SOB, wheezing, orthopnea GI: Denies nausea, vomiting, abdominal pain, constipation, diarrhea, melena/ hematochezia : Denies dysuria, frequency, hematuria Musculoskeletal: Denies joint/muscle aches, weakness, swelling Neurologic: Denies dizziness/lightheadedness, numbness/tingling, weakness Psychiatric: Deferred Endocrine: Deferred Hematologic/Lymphatic: Denies bleeding/clotting abnormalities Skin: Denies rash, itch, new skin changes, easy bruising Allergy/Immunologic: Deferred Medications Current Inpatient Medications Medications (Trade) Dose Ordered Sig/Jesus Route Start Time Stop Time Status Last Admin Dose Admin Acetaminophen (Tylenol Tab) 650 mg Q4H PRN PO 02/11/17 14:15 03/13/17 14:14 Al Hydrox/Mg Hydrox/Simethicone (Maalox Max Susp) 15 ml Q4H PRN PO 02/11/17 14:15 03/13/17 14:14 Magnesium Hydroxide (Milk Of Magnesia Susp) 30 ml Q12H PRN PO 02/11/17 14:15 03/13/17 14:14 Ondansetron HCl (Zofran Inj) 4 mg Q6H PRN IV 02/11/17 14:15 03/13/17 14:14 Polyethylene 17 gm 17 gm DAILY PRN PO 02/11/17 14:15 03/13/17 14:14 Levofloxacin/Prmx (Levaquin / D5W/ Premixed D5W) 150 ml @ 100 mls/hr Q24H IV 02/12/17 14:00 02/18/17 13:59 02/12/17 14:20 100 MLS/HR Albuterol/ Ipratropium (Duoneb) 3 ml QIDR INH 02/11/17 16:00 03/13/17 15:59 02/13/17 11:07 3 ML Guaifenesin (Mucinex Contr Rel Tab) 600 mg Q12 PO 02/11/17 21:00 03/13/17 20:59 02/13/17 09:16 600 MG Benzonatate (Tessalon Perles Cap) 100 mg TID PO 02/11/17 21:00 03/13/17 20:59 02/13/17 09:16 100 MG Arformoterol Tartrate (Brovana 15MCG/ 2ML Neb Soln) 15 mcg BIDR INH 02/11/17 20:00 03/13/17 19:59 02/13/17 07:25 15 MCG Aspirin (Ecotrin Tab) 81 mg QAM PO 02/12/17 09:00 03/14/17 08:59 02/13/17 09:16 81 MG Clonazepam (Klonopin Tab) 0.25 mg HS PO 02/11/17 21:00 03/13/17 20:59 02/12/17 19:33 0.25 MG Furosemide (Lasix Tab) 20 mg DAILY PRN PO 02/11/17 14:30 03/13/17 14:29 Levothyroxine Sodium (Synthroid Tab) 88 mcg DAILYBB PO 02/12/17 06:00 03/14/17 05:59 02/13/17 05:35 88 MCG Simvastatin (Zocor Tab) 10 mg HS PO 02/11/17 21:00 03/13/17 20:59 02/12/17 19:31 10 MG Sotalol HCl (Betapace Tab) 80 mg BID PO 02/11/17 21:00 03/13/17 20:59 02/13/17 09:16 80 MG Venlafaxine HCl 75 mg 75 mg QAM PO 02/12/17 09:00 03/14/17 08:59 02/13/17 09:16 75 MG Diltiazem HCl/ Dextrose (Cardizem Inj/D5 100ml) 125 ml @ 15 mls/hr Q8H20M PRN IV 02/11/17 18:45 03/13/17 18:44 02/13/17 03:31 15 MLS/HR Objective Vital Signs Date Time Temp Pulse Resp B/P Pulse Ox O2 Delivery O2 Flow Rate FiO2 02/13/17 11:09 83 18 94 Nasal Cannula 2.0 02/13/17 08:00 Nasal Cannula 2.0 02/13/17 07:42 36.6 77 16 106/66 98 Nasal Cannula 2.0 02/13/17 07:25 82 18 92 Nasal Cannula 2.0 02/13/17 04:11 36.7 76 19 101/63 94 Nasal Cannula 2.0 02/13/17 04:00 94 Nasal Cannula 2.0 02/12/17 23:59 94 Nasal Cannula 2.0 02/12/17 23:43 36.8 79 19 119/71 92 Nasal Cannula 2.0 02/12/17 20:10 102 18 93 Nasal Cannula 2.0 02/12/17 20:03 37.0 106 20 149/71 94 Room Air 02/12/17 20:00 94 Nasal Cannula 2.0 02/12/17 16:00 36.3 81 19 113/68 90 Nasal Cannula 2.0 02/12/17 16:00 Nasal Cannula 2.0 02/12/17 15:40 81 18 90 Nasal Cannula 2.0 02/12/17 12:00 Nasal Cannula 2.0 02/12/17 11:27 36.9 75 16 102/64 90 Room Air 02/12/17 11:16 76 18 91 Room Air Physical Exam Notes: PHYSICAL EXAM:: General Appearance: WDWN in NAD who is A&O x 3 HEENT: Head is normocephalic/atraumatic; EOMI; PERRLA; Hearing grossly intact; Mucous membranes moist; Pharynx negative for exudate/lesions Neck: Supple; Trachea midline; Neg JVD; Neg lymphadenopathy Heart: RRR with no M/G/R Lungs: Course breath sounds with crackles and bases bilat; Respirations unlabored; Neg accessory muscle use; Negative wheeze Abdomen: Soft, non-tender, non-distended; Positive BS x 4 quadrants Extremities: Capillary refill < 2 seconds; Neg cyanosis or edema Neurological: Speech clear; Gross motor/sensory function intact; Neg focal neurologic deficits Psychiatric: Appropriate mood/affect Skin: Normal Color; Warm/Dry; Neg rashes, ecchymosis, lacerations/ulcerations Laboratory Results Last 24 Hours Test 02/13/17 06:09 White Blood Count 12.38 K/uL Red Blood Count 4.00 M/uL Hemoglobin 12.3 g/dL Hematocrit 36.4 % Mean Corpuscular Volume 91.0 fL Mean Corpuscular Hemoglobin 30.8 pg Mean Corpuscular Hemoglobin Concent 33.8 g/dl Platelet Count 227 K/uL Mean Platelet Volume 9.8 fL Neutrophils (%) (Auto) 71.4 % Lymphocytes (%) (Auto) 12.0 % Monocytes (%) (Auto) 13.1 % Eosinophils (%) (Auto) 2.8 % Basophils (%) (Auto) 0.2 % Neutrophils # (Auto) 8.85 K/uL Lymphocytes # (Auto) 1.48 K/uL Monocytes # (Auto) 1.62 K/uL Eosinophils # (Auto) 0.35 K/uL Basophils # (Auto) 0.02 K/uL RDW Standard Deviation 45.8 fL RDW Coefficient of Variation 13.7 % Immature Granulocyte % (Auto) 0.5 % Immature Granulocyte # (Auto) 0.06 K/uL Prothrombin Time 55.4 SECONDS Prothromb Time International Ratio 4.8 Sodium Level 136 mmol/L Potassium Level 3.4 mmol/L Chloride Level 100 mmol/L Carbon Dioxide Level 28 mmol/L Anion Gap 8.0 mmol/L Blood Urea Nitrogen 19 mg/dl Creatinine 0.59 mg/dl Est Creatinine Clear Calc Drug Dose 69.2 ml/min Estimated GFR () 98.2 Estimated GFR (Non- 84.8 BUN/Creatinine Ratio 31.5 Random Glucose 105 mg/dl Calcium Level 8.6 mg/dl Magnesium Level 2.1 mg/dl Assessment and Plan 81 y/o female date on 02/11/2017 because of community-acquired pneumonia with with productive cough, shortness breath, and fever x 3 days, and A. fib with rapid ventricular response A Fib with RVR: Currently NSR with Rate Controlled - Continue Cardizem gtt - intermittent A Fib yesterday - Coumadin on hold for supratherepeutic INR - Sotalol 80 mg BID - Cardiology consulted - appreciate recommendations - recommendations for D/C gtt Hypoxic Respiratory Failure (RESOLVED) 2/2 Community-Acquired Pneumonia - LLL: IMPROVING - Levaquin 750 mg IV daily - Duonebs QIDR and Q2H PRN - Mucinex 600 mg BID and Tessalon Perles 100 mg TID - Incentive spirometry Supratherapeutic INR: -INR at 4.8 - no active bleeding - continue to hold and check INR in AM Pulmonary Fibrosis: - Brovana neb BID HTN: Stable - Continue sotalol as above HLD: - Simvastatin 10 mg daily Hypothyroidism: COMPENSATED - Synthroid 88 mcg daily Depression: - Effexor 75 mg daily and Klonopin 0.25 mg HS DVT prophylaxis: KD/SCDs; Supratherapeutic INR Code Status: FULL RESUSCITATION Disposition: Pending cardiology input - possible D/C in 1-2 days - Lives at home alone with family near by - await PT/OT recommendations Continued [facility] stay due to: multiple IV medications needed
--- NOTE | 2017-02-13 13:44 | CARDIOLOGY CONSULTATION ---
DATE OF CONSULTATION: 02/13/2017 CONSULTATION FOR: [facility] hospitalist. REASON FOR CONSULTATION: Atrial fibrillation. HISTORY OF PRESENT ILLNESS: This patient is an 81-year-old female with a history of pulmonary fibrosis, chronic bronchitis and bronchiectasis. She was admitted with progressive shortness of breath and productive cough. It is assumed that she has a left lower lobe pneumonia. She has been started on intensive therapy for her lung disease along with antibiotics. She also has a history of paroxysmal atrial fibrillation and sees Dr. Mitchell at [facility], where she just saw him on Tuesday and things gone well. She has been on sotalol for many years, which controls her arrhythmias. When she presented earlier in this admission, she had atrial fibrillation with RVR. She has been started on diltiazem along with her sotalol and is currently in a normal sinus rhythm. She has no cardiac complaints today. ALLERGIES: IODINATED CONTRAST AGENTS, PENICILLIN, SULFA ANTIBIOTICS, TERFENADINE AND SEASONAL ALLERGIES. PAST MEDICAL HISTORY: Per the history of chief complaint. In addition, she is treated for hypothyroidism and essential hypertension. She is also on long-term anticoagulation for her atrial fibrillation. Her yard crane operator is Dr. Herrera here at locally with Simba Alcazar. SOCIAL HISTORY: She is a nonsmoker. FAMILY MEDICAL HISTORY: Noncontributory. REVIEW OF SYSTEMS: A 10-point review of systems is negative except for the history of chief complaint. PHYSICAL EXAMINATION: GENERAL: She is alert and oriented. VITAL SIGNS: Blood pressure is 110/70 and pulse is irregular at 81 beats per minute. She is afebrile. HEENT: She is normocephalic. Pupils are equal and reactive to light. Extraocular muscles are intact bilaterally. NECK: The neck veins are flat. Carotids have good upstrokes bilaterally without bruits. Thyroid is nonpalpable. RESPIRATORY: Breath sounds equal bilaterally and clear to auscultation. CARDIOVASCULAR: Heart has irregular rhythm. Normal S1 and S2. No S3 or S4. No cardiac rubs or murmurs. GASTROINTESTINAL: Abdomen is soft and nontender without organomegaly. EXTREMITIES: Free of edema, digit clubbing, or cyanosis. NEUROLOGIC: Grossly intact. SKIN: Warm to touch. LYMPH NODES: Negative to palpation. LABORATORY DATA: WBC count is 12.38 and hemoglobin is 12.3. Creatinine is 0.59. Potassium is 3.4 and is being supplemented. INR is 4.8. IMPRESSION: 1. Left lower lobe pneumonia. 2. History of pulmonary fibrosis, bronchiectasis and chronic bronchitis. 3. Paroxysmal atrial fibrillation. RECOMMENDATIONS: I would continue the sotalol at its present dose. Obviously, we have held the warfarin due to an elevated INR and we will restart it when she is once again in the therapeutic range. I would continue to treat her pneumonia and continue the diltiazem as needed to control her atrial fibrillation.
[2017-02-13] MEDS: LEVOFLOXACIN / D5W 750 MG in PREMIXED IN D5W 150 ML IV SCH (14:32)
[2017-02-13] MEDS: SIMVASTATIN 10 MG TAB PO SCH (19:41)
[2017-02-13] MEDS: CLONAZEPAM 0.5 MG TAB PO SCH (19:46)
[2017-02-14] VITALS (10 sets, daily range): BP systolic 104–125; BP diastolic 65–74; PULSE 72–87; TEMP 36.4–37; O2SAT 91–96
[2017-02-14] MEDS: DILTIAZEM HCL INJ 125 MG in DEXTROSE 5% 100ML IV PRN (04:21)
[2017-02-14] MEDS: LEVOTHYROXINE 88 MCG TAB PO SCH (05:48)
[2017-02-14] MEDS: ALBUT/IPRATROP 3MG/0.5MG NEB 3 ML VIAL INH SCH ×4 (07:07→19:32)
[2017-02-14] MEDS: ARFORMOTEROL TART 15MCG/2ML VIAL INH SCH ×2 (07:07→19:32)
[2017-02-14 07:37] LABS: BASO % 0.5 %; BASO ABS # 0.06 K/uL (0-0.2); COMPLETE YES; EOS % 4.4 %; HEMATOCRIT 36.9 % (37-47); IG% 1.3 %; MEAN CELL VOLUME 91.8 fL (80-100); MEAN CORPUSCULAR HEMOGLOBIN 30.8 pg (25-34); MEAN CORPUSCULAR HGB CONC 33.6 g/dl (32-36); MEAN PLATELET VOLUME 9.9 fL (7.4-10.4); MONO % 12.7 %; NEUT % 67.1 %; PLATELET COUNT 251 K/uL (130-400); RED BLOOD COUNT 4.02 M/uL (4.2-5.4); WHITE BLOOD COUNT 11.46 K/uL (4.8-10.8)
[2017-02-14 07:51] LABS: PROTHROMBIN TIME (PATIENT) 58.2 SECONDS (9.0-12.0)
[2017-02-14 07:57] LABS: INR 5.1 (0.9-1.1)
[2017-02-14] MEDS: GUAIFENESIN 600 MG TABCR PO SCH ×2 (07:57→19:10)
[2017-02-14] MEDS: ASPIRIN 81 MG ECTAB PO SCH (07:57)
[2017-02-14] MEDS: BENZONATATE 100MG CAP PO SCH ×3 (07:58→19:10)
[2017-02-14] MEDS: SOTALOL HCL 80 MG TAB PO SCH ×2 (07:58→19:11)
[2017-02-14] MEDS: VENLAFAXINE HCL XR 75 MG CAPXR PO SCH (07:58)
[2017-02-14 08:11] LABS: BUN/CREATININE RATIO 20.1 (10-20); CALCIUM 8.6 mg/dl (8.5-10.1); CREATININE 0.61 mg/dl (0.60-1.20); POTASSIUM 4.2 mmol/L (3.5-5.1)
[2017-02-14] MEDS ORDERED: DILTIAZEM HCL 180 MG ER CAP PO ONE (11:00)
--- NOTE | 2017-02-14 11:33 | PROGRESS NOTE ---
DATE: 02/14/2017 SUBJECTIVE: The patient is an 81-year-old with chronic bronchitis, bronchiectasis and pulmonary fibrosis who was admitted with pneumonia. She also has a history of paroxysmal atrial fibrillation which has been successfully treated in the past with sotalol. She presented with atrial fibrillation, RVR and has since converted to a normal sinus rhythm. OBJECTIVE: VITAL SIGNS: Blood pressure is 118/70, pulse is regular at 73 and she is in a sinus rhythm. She is afebrile. GENERAL: She is alert and oriented, in no acute distress. HEENT: She is normocephalic. Pupils are equal and reactive to light. Extraocular muscles are intact bilaterally. NECK: The neck veins are flat. Carotids have good upstrokes bilaterally without bruits. Thyroid is nonpalpable. RESPIRATORY: Breath sounds are equal bilaterally and clear to auscultation. CARDIOVASCULAR: Heart has a regular rhythm. There are no cardiac rubs or murmurs. GASTROINTESTINAL: Abdomen is soft and nontender without organomegaly. EXTREMITIES: Free of edema, digit clubbing or cyanosis. NEUROLOGIC: Grossly intact. SKIN: Warm to touch. LYMPH NODES: Negative to palpation. LABORATORY DATA: INR is 5.1. IMPRESSION: 1. Paroxysmal atrial fibrillation. 2. Chronic bronchitis, bronchiectasis and pulmonary fibrosis. 3. Left lower lobe pneumonia. RECOMMENDATION: I will discontinue her diltiazem drip today and start her on oral medications. Her INR has remained supratherapeutic and I would continue to hold her warfarin.
[2017-02-14] MEDS: LEVOFLOXACIN / D5W 750 MG in PREMIXED IN D5W 150 ML IV SCH (13:27)
[2017-02-14] MEDS: SIMVASTATIN 10 MG TAB PO SCH (19:11)
[2017-02-14] MEDS: CLONAZEPAM 0.5 MG TAB PO SCH (19:11)
[2017-02-15 03:25] VITALS: BP 92/55; PULSE 77; TEMP 36.9; O2SAT 93
[2017-02-15] MEDS: LEVOTHYROXINE 88 MCG TAB PO SCH (05:42)
[2017-02-15 07:11] VITALS: PULSE 78; O2SAT 98
[2017-02-15] MEDS: ARFORMOTEROL TART 15MCG/2ML VIAL INH SCH (07:11)
[2017-02-15 08:06] VITALS: BP 102/63; PULSE 85; TEMP 36.7; O2SAT 93
[2017-02-15] MEDS: BENZONATATE 100MG CAP PO SCH ×2 (08:45→14:00)
[2017-02-15] MEDS: GUAIFENESIN 600 MG TABCR PO SCH (08:45)
[2017-02-15] MEDS: VENLAFAXINE HCL XR 75 MG CAPXR PO SCH (08:45)
[2017-02-15] MEDS: SOTALOL HCL 80 MG TAB PO SCH (08:46)
[2017-02-15] MEDS: ASPIRIN 81 MG ECTAB PO SCH (08:46)
[2017-02-15] MEDS ORDERED: DILTIAZEM HCL (TIAzac) 180 MG CAPCR PO SCH (09:00)
[2017-02-15] MEDS ORDERED: LEVOFLOXACIN 750 MG TAB PO SCH (11:00)
[2017-02-15 11:26] VITALS: PULSE 76; O2SAT 91
[2017-02-15] MEDS: ALBUT/IPRATROP 3MG/0.5MG NEB 3 ML VIAL INH SCH (11:26)
--- NOTE | 2017-02-15 12:06 | CARDIOLOGY PROGRESS NOTE ---
DATE: 02/15/2017 CARDIOLOGY FOLLOWUP SUBJECTIVE: The patient is seen and examined at the bedside. She is admitted with pneumonia, superimposed on underlying pulmonary fibrosis. Initial ECG noted to be atrial fibrillation with rapid ventricular response. The patient was treated with intravenous diltiazem, which was subsequently converted to oral diltiazem. She is chronically treated with oral sotalol for rhythm control. The patient remains in sinus rhythm. Her INR was supratherapeutic today. Coumadin is on hold. She denies chest pain or unusual shortness of breath. No palpitations, lightheadedness, dizziness, syncope or near syncope. She offers no other complaints at this time. REVIEW OF SYSTEMS: The pertinent positives noted above and a 4-system review including cardiovascular, pulmonary, gastroenterologic, and neurologic systems otherwise negative. MEDICATIONS: Reviewed via EMR. Please see list for details. LABORATORY DATA: INR yesterday is 5.1, repeat INR not performed. PHYSICAL EXAMINATION: VITAL SIGNS: Temperature is 36.7 degrees centigrade, pulse 76 beats per minute and regular, respiratory rate 16 breaths per minute, blood pressure is 102/63, SAO2 93% on room air. GENERAL: NAD, awake, alert, oriented x3. HEENT: Mucous membranes are moist. There is no scleral icterus. HEART: Regular with a normal S1 and S2, no murmur, rub, or gallop. LUNGS: Demonstrate crackles at the bases bilaterally. There is no rhonchi or wheeze. ABDOMEN: Soft, nontender. No rebound or guarding. EXTREMITIES: Warm and dry without clubbing, cyanosis, or edema. NEUROLOGIC: Demonstrates no focal motor deficit. FINAL IMPRESSION: 1. Paroxysmal atrial fibrillation with rapid ventricular response, subsequent conversion to sinus rhythm. Diltiazem has been added. The patient remains rhythm controlled at this time. 2. Supratherapeutic INR. 3. Left lower lobe pneumonia superimposed on chronic pulmonary fibrosis/bronchiectasis. PLAN AND RECOMMENDATIONS: Warfarin will remain on hold. Repeat INR ordered. She will continue sotalol in addition to diltiazem at this time. No further cardiac testing. We will continue to follow during hospitalization.
[2017-02-15 12:10] VITALS: BP 94/40; PULSE 76; TEMP 36.8; O2SAT 91
[2017-02-15 13:21] LABS: INR 2.3 (0.9-1.1); PROTHROMBIN TIME (PATIENT) 25.4 SECONDS (9.0-12.0)
[2017-02-15] MEDS ORDERED: TZCSR180 PO (13:57)
[2017-02-15] MEDS ORDERED: LVQ750 PO (13:57)
--- NOTE | 2017-02-15 14:00 | Discharge Instructions ---
Discharge Instructions Date of Service February 15, 2017. Admission Reason for Admission: Atrial Fibrillation With Rvr, Pneumonia Discharge Discharge Diagnosis / Problem: Pneumonia, atrial fibrillation with rapid response Discharge Goals Goal(s): Decrease discomfort, Improve function Activity Recommendations Activity Limitations: resume your previous activity Exercise/Sports Limitations: as tolerated Shower/Bathe: no limitations . Instructions / Follow-Up Instructions / Follow-Up Medications: - LEVAQUIN: antibiotic, you need to take for 2 more days and then stop, this will be a total of 7 days of treatment - DILTIAZEM: added by cardiology to help control your heart rate with atrial fibrillation, take once a day Please get your INR check later this week, or Tuesday FOLLOW UP - Simba Alcazar in one week, please call his office to arrange an appointment - Aram cowart in 1 month, please call office to arrange an appointment Current Hospital Diet Patient's current hospital diet: AHA Diet (Heart Healthy) Discharge Diet Recommended Diet: AHA Diet (Heart Healthy) Pending Studies Studies pending at discharge: no Laboratory Results Last Resulted CBC 02/14/17 06:55 Red Blood Count 4.02, Mean Corpuscular Volume 91.8, Mean Corpuscular Hemoglobin 30.8, Mean Corpuscular Hemoglobin Concent 33.6, Mean Platelet Volume 9.9, Neutrophils (%) (Auto) 67.1, Lymphocytes (%) (Auto) 14.0, Monocytes (%) (Auto) 12.7, Eosinophils (%) (Auto) 4.4, Basophils (%) (Auto) 0.5, Neutrophils # (Auto ) 7.70, Lymphocytes # (Auto) 1.60, Monocytes # (Auto) 1.45, Eosinophils # (Auto ) 0.50, Basophils # (Auto) 0.06 Last Resulted BMP 02/14/17 06:55 Medical Emergencies . Who to Call and When: Medical Emergencies: If at any time you feel your situation is an emergency, please call 911 immediately. . Non-Emergent Contact Non-Emergency issues call your: Primary Care Provider Call Non-Emergent contact if: you have a fever, you have any medication questions . . "Provider Documentation" section prepared by Kahlil Mayer. . VTE Core Measure Inpt VTE Proph given/why not?: Warfarin (Coumadin), T.EDonald [place], SCD's
[2017-02-15] MEDS ORDERED: BTP80 PO (14:17)
[2017-02-15 15:44] VITALS: BP 119/76; PULSE 81; TEMP 36.9; O2SAT 91
--- NOTE | 2017-02-16 09:35 | Discharge Summary ---
Discharge Summary Date of Service February 15, 2017. Discharge Summary Admission Date: Feb 11, 2017 at 14:22 Discharge Date: February 15, 2017 Discharge Disposition: Home Principal Diagnosis: Pneumonia Problems/Secondary Diagnoses: Atrial fibrillation with RVR Pulmonary fibrosis Procedures: none Consultations: Cardiology - [facility] Medication Reconciliation New Medications: Diltiazem HCl (Tiazac) 180 Mg Capcr 180 MG PO QAM, #30 CAP 3 Refills Levofloxacin (Levofloxacin) 750 Mg Tab 750 MG PO DAILY@11, #2 TAB 0 Refills Sotalol HCl (Sotalol HCl) 80 Mg Tab 80 MG PO BID, #60 TAB 3 Refills Continued Medications: Albuterol Hfa (Ventolin Hfa) 200 Puffs/87125 Mcg Aers 2-4 PUFFS INH Q6H, #1 INHALER Arformoterol Tartrate (Brovana) 15 Mcg/2 Ml Neb 1 VIAL NEB BID for 30 Days, #120 ML 11 Refills Aspirin (Aspirin Chewable) 81 Mg Chew 81 MG PO QAM Clonazepam (Clonazepam) 0.5 Mg Tab 0.5 TAB PO HS Furosemide (Lasix) 20 Mg Tab 20 MG PO DAILY PRN for LEG SWELLING, TAB Ipratropium-Albuterol (Duoneb) 3 Ml Nebu 1 TREATMENT INH BID, INHA Levothyroxine Sodium (Synthroid) 88 Mcg Tab 88 MCG PO QAM, TAB Simvastatin (Simvastatin) 10 Mg Tab 10 MG PO HS Venlafaxine Hcl (Effexor) 75 Mg Tab 75 MG PO QAM, TAB Warfarin Sod (Coumadin) 2 Mg Tab 1 TAB PO 2XWK and Tuesday Warfarin Sodium (Coumadin) 2 Mg Tab 1.5 TAB PO 5XWK, TAB Discharge Exam Patient felt very well on day of discharge, weaned off of oxygen, minimal cough , no wheezing. Her HR was well controlled on diltiazem 180mg in addition to the Sotalol. Discussed plans for discharge since she was cleared to return home by therapy. Explained that she would need 2 more days of Levaquin. She would be taking the Diltiazem 180mg in addition to her Sotalol 80mg BID and she would follow up with Dr. Mitchell. She had a follow up appointment with her PCP on Tuesday and would get her INR checked at that time. Review of Systems: Constitutional: + weakness (improving), No chills, No fatigue, No fever, No problem reported, No sweats, No weight loss Respiratory: + cough (minimal sputum production), No dyspnea at rest, No dyspnea on exertion, No hemoptysis, No problem reported, No shortness of breath , No sputum, No wheezing Cardiovascular: No PND, No chest pain, No claudication, No edema, No orthopnea, No palpitations, No problem reported Abdomen: No GI bleeding, No constipation, No diarrhea, No nausea, No pain, No problem reported, No vomiting Musculoskeletal: No calf pain, No joint pain, No muscle pain, No problem reported, No swelling Genitourinary - Female: No dysuria, No hematuria, No urinary frequency, No urinary incontinence, No urinary retention, No urinary urgency Neurologic: No balance problems, No memory loss, No numbness/tingling, No paralysis, No problem reported, No vertigo, No weakness Psychiatric: No anhedonism, No anxiety, No depression symptoms, No insomnia , No problem reported, No substance abuse Endocrine: No excessive thirst, No excessive urination, No fatigue, No problem reported Hematologic / Lymphatic: No abnormal bleeding/bruising, No clotting problems , No night sweats, No problem reported, No swollen lymph nodes Integumentary: No bleeding, No color change, No itch, No new/changing skin lesions, No problem reported, No rash Physical Exam: General Appearance: WD/WN, no apparent distress Eyes: normal inspection, EOMI, sclerae normal ENT: normal ENT inspection, hearing grossly normal, pharynx normal Neck: supple, no adenopathy, no JVD, trachea midline Respiratory/Chest: chest non-tender, lungs clear, normal breath sounds, no respiratory distress, no accessory muscle use Cardiovascular: regular rate, rhythm, no edema, no gallop, no JVD, no murmur , normal peripheral pulses Abdomen / GI: normal bowel sounds, non tender, soft, no organomegaly Extremities: normal inspection, no calf tenderness, normal capillary refill , no pedal edema, normal range of motion Neurologic/Psychiatric: frog farmer II-XII nml as tested, no motor/sensory deficits , alert, normal mood/affect Skin: normal color, warm/dry, no rash Hospital Course 81 y/o female date on 02/11/2017 because of community-acquired pneumonia with with productive cough, shortness breath, and fever x 3 days, and A. fib with rapid ventricular response Paroxysmal A Fib with RVR secondary to pneumonia: converted back to NSR on Diltiazem gtt initially - placed on Diltiazem 180mg PO on 02/14, remained in NSR off of drip - Sotalol 80 mg BID - Cardiology consulted - appreciate recommendations of Diltiazem - INR supratherapeutic so Coumadin held initially, resumed on D/c since INR back to 2.3 - will d/c home on Diltiazem 180mg daily, sotalol 80mg BID, and resume Coumadin - follow up closely with Dr. Mitchell with [facility] cardiology [place] Hypoxic Respiratory Failure (RESOLVED) 2/2 Community-Acquired Pneumonia - LLL: nearly resolved - Levaquin 750 mg IV daily initially then switched to PO, tolerated well will prescribe two more days of Levaquin to complete 7 days total - Duonebs QIDR and Q2H PRN, will continue nebulizers at home as needed, already set up with nebulizers - Mucinex 600 mg BID and Tessalon Perles 100 mg TID - Incentive spirometry - continue Brovana - follow up with PCP Dr. Hart on Tuesday and Simba Alcazar with pulmonary in 1- 2 weeks Supratherapeutic INR: -INR at 2.3 - no active bleeding - will resume Coumadin and get INR on 02/18 with PCP - INR high likely due to poor appetite for over a week, now she is eating well because pneumonia adequately treated Pulmonary Fibrosis: - Brovana neb BID - f/u with Simba Alcazar HTN: Stable HLD: - Simvastatin 10 mg daily Hypothyroidism: COMPENSATED - Synthroid 88 mcg daily Depression: - Effexor 75 mg daily and Klonopin 0.25 mg HS DVT prophylaxis: KD/SCDs; Supratherapeutic INR Code Status: FULL RESUSCITATION Total Time Spent: Greater than 30 minutes This includes examination of the patient, discharge planning, medication reconciliation, and communication with other providers. Discharge Instructions Please refer to the electronic Patient Visit Report (Discharge Instructions) for additional information. Follow-Up Dr. Hart on 02/18 Dr. Mitchell in 2-3 weeks Simba Alcazar PA-C in 1-2 weeks Additional Copies To Monica Hart D.O.; Supa Mitchell D.O.; Simba Alcazar, PA-[place]
== END 2017-02-15 16:00 | disposition home or self-care (01) | DRG 193 ==
LOC: ENRESERVDT → ENRESERVTM → C.EDB 09:53 → C.2T 14:22
PROVIDERS: ADMIT Family Medicine; ATTEND Internal Medicine
DX: J18.9 Pneumonia, unspecified organism (principal); J96.91 Respiratory failure, unspecified with hypoxia; I48.0 Paroxysmal atrial fibrillation; F32.9 Major depressive disorder, single episode, unspecified; I10 Essential (primary) hypertension; J84.10 Pulmonary fibrosis, unspecified; R79.1 Abnormal coagulation profile; J47.9 Bronchiectasis, uncomplicated; Z88.0 Allergy status to penicillin; E78.5 Hyperlipidemia, unspecified; E03.9 Hypothyroidism, unspecified; Z79.01 Long term (current) use of anticoagulants; Z88.2 Allergy status to sulfonamides

== ENCOUNTER → 2017-05-17 | Outpatient (CLI) | payer OTHER, BC ==
[~2017-05-17] MED LIST changes: -ALBU1AER9 INH; +ARFO15NE NEB; +LVQ750 PO; +TZCSR180 PO; +VNTHFA/IN INH; -[UNRECOGNIZED DRUG - SUPPLY]
--- NOTE | 2017-05-17 12:04 | DIAGNOSTIC IMAGING REPORT ---
CHEST 2 VIEWS ROUTINE CLINICAL HISTORY: R05 [id number] dyspnea COMPARISON STUDY: 02/11/2017 FINDINGS: Improved exam compared to the prior study. Improved aeration left base. Improved infiltrative change peripheral right lung. Potential small residual parenchymal nodule peripheral right lung with minimal residual parenchymal infiltrative change peripheral left base. IMPRESSION: Improved study compared to the prior exam. Minimal residual infiltrate peripheral left base. Residual focal infiltrate versus nodularity peripheral right midlung The above report was generated using voice recognition software. It may contain grammatical, syntax or spelling errors. Electronically signed by: Abner Harris M.D. 05/17/2017 12:03 PM Dictated Date/Time: 05/17/2017 12:01 PM
== END | disposition home or self-care (01) ==
LOC: C.RAD1850 11:33
PROVIDERS: ATTEND Physician Assistant
DX: R05 Cough (principal)

== ENCOUNTER → 2017-06-14 | Outpatient (CLI) | payer OTHER, BC ==
--- NOTE | 2017-06-14 15:08 | DIAGNOSTIC IMAGING REPORT ---
CHEST 2 VIEWS ROUTINE HISTORY: 81 years-old Female Z99.81 Dependence on supplemental [id number] COMPARISON: Chest radiographs 05/17/2017, CT chest 01/05/2017 TECHNIQUE: Frontal and lateral views of the chest FINDINGS: Cardiac silhouette is upper limits of normal. There is atherosclerosis of the aorta. No pneumothorax. There are persistent bibasilar and right lateral midlung reticular nodular opacities which have not significantly changed from comparison study. No new focal airspace opacities are identified. The bones are grossly intact. IMPRESSION: Stable exam with persistent bibasilar and right lateral midlung reticular nodular opacities The above report was generated using voice recognition software. It may contain grammatical, syntax or spelling errors. Electronically signed by: Rahul Lira M.D. 06/14/2017 3:06 PM Dictated Date/Time: 06/14/2017 3:04 PM
== END | disposition home or self-care (01) ==
LOC: C.RAD1850 14:30
PROVIDERS: ATTEND Physician Assistant
DX: Z99.81 Dependence on supplemental oxygen (principal)

== ENCOUNTER → 2017-07-06 | Outpatient (CLI) | payer OTHER, BC ==
[2017-07-06 16:11] LABS: BLOOD UREA NITROGEN 14 mg/dl (7-18); BUN/CREATININE RATIO 23.4 (10-20); CALCIUM 9.4 mg/dl (8.5-10.1); CARBON DIOXIDE 32 mmol/L (21-32); CHLORIDE 103 mmol/L (98-107); CREATININE 0.61 mg/dl (0.60-1.20); GLUCOSE 91 mg/dl (70-99); POTASSIUM 4.2 mmol/L (3.5-5.1); SODIUM 139 mmol/L (136-145)
[2017-07-06 16:15] LABS: ALB/GLOB RATIO 0.8 (0.9-2); ALKALINE PHOSPHATASE 75 U/L (45-117); ALT/SGPT 15 U/L (12-78); AST/SGOT 19 U/L (15-37)
[2017-07-11 15:40] LABS: ASPERGILLUS FLAVUS Negative (Negative); ASPERGILLUS FUMIGATUS Negative (Negative); ASPERGILLUS NIGER Negative (Negative); FUNGITELL (1-3)-B-D-GLUCAN* <31 pg/mL; FUNGITELL INTERP NEGATIVE
== END | disposition home or self-care (01) ==
LOC: C.LAB1850 14:38
PROVIDERS: ATTEND Physician Assistant
DX: R91.1 Solitary pulmonary nodule (principal)

== ENCOUNTER → 2017-08-31 | Outpatient (CLI) | payer OTHER, BC ==
--- NOTE | 2017-08-31 13:12 | DIAGNOSTIC IMAGING REPORT ---
(CHEST) THORAX WITHOUT CLINICAL HISTORY: R91.1 Solitary pulmonary nodule COMPARISON STUDY: 01/05/2017 CT DOSE: 261.51 mGy.cm TECHNIQUE: CT of the thorax was performed from the thoracic inlet to the lung bases. Images are reviewed in the axial, sagittal, and coronal planes. IV contrast was not administered for this examination. A dose lowering technique was utilized adhering to the principles of ALARA. FINDINGS: Thyroid: Imaged portions of the thyroid gland are normal in appearance. Thoracic aorta: The thoracic aorta is normal in course and caliber, noting standard 3 vessel arch anatomy. Heart: The heart is borderline enlarged. There are minimal coronary artery calcifications. Lungs and pleural spaces: No pleural effusions are visualized. There is mild diffuse bronchial wall thickening. There are innumerable miliary type nodules present. There are persistent peripheral right upper lobe more focal airspace opacities. Since the prior study, the patient developed marked narrowing of the bronchus intermedius. Mediastinum: There are mildly enlarged mediastinal lymph nodes, similar to the preceding study. Carrie: The hilar structures are difficult to evaluate given the absence of intravenous contrast. Prominent hilar lymph nodes are suspected Axilla: There is no evidence of pathologic axillary lymphadenopathy Upper abdomen: Partially visualized upper abdominal viscera is within normal limits. Skeletal structures: There are no lytic or blastic osseous lesions. IMPRESSION: 1. Innumerable tiny miliary nodules. A chronic infectious/inflammatory process is favored 2. Stable area of more focal pulmonary consolidation within the periphery of the right upper lobe 3. Areas of mild bronchiectasis within the left upper lobe. Mild diffuse bronchial wall thickening 4. Stable mild mediastinal lymphadenopathy 5. Interval development of marked narrowing of the bronchus intermedius. Electronically signed by: Gustavo Mireles M.D. 08/31/2017 1:11 PM Dictated Date/Time: 08/31/2017 1:02 PM
== END | disposition home or self-care (01) ==
LOC: C.CTS 12:36
PROVIDERS: ATTEND Physician Assistant
DX: R91.1 Solitary pulmonary nodule (principal); R91.8 Other nonspecific abnormal finding of lung field

== ENCOUNTER → 2017-09-23 | Outpatient (CLI) | payer OTHER, BC ==
[2017-09-23 12:46] LABS: BASO % 0.4 %; BASO ABS # 0.03 K/uL (0-0.2); COMPLETE YES; EOS % 8.4 %; HEMATOCRIT 41.6 % (37-47); IG% 0.1 %; LYMPH % 30.5 %; LYMPH ABS # 2.04 K/uL (1.2-3.4); MEAN CELL VOLUME 93.3 fL (80-100); MEAN CORPUSCULAR HEMOGLOBIN 30.5 pg (25-34); MEAN CORPUSCULAR HGB CONC 32.7 g/dl (32-36); MEAN PLATELET VOLUME 10.4 fL (7.4-10.4); MONO % 8.7 %; NEUT % 51.9 %; PLATELET COUNT 238 K/uL (130-400); RED BLOOD COUNT 4.46 M/uL (4.2-5.4); WHITE BLOOD COUNT 6.68 K/uL (4.8-10.8)
[2017-09-23 13:04] LABS: PARTIAL THROMBOPLASTIN RATIO 1.4
[2017-09-23 13:12] LABS: ALT/SGPT 17 U/L (12-78); AST/SGOT 16 U/L (15-37); BLOOD UREA NITROGEN 21 mg/dl (7-18); BUN/CREATININE RATIO 28.6 (10-20); CARBON DIOXIDE 30 mmol/L (21-32); CHLORIDE 100 mmol/L (98-107); CREATININE 0.75 mg/dl (0.60-1.20); GLUCOSE 143 mg/dl (70-99); POTASSIUM 3.7 mmol/L (3.5-5.1); SODIUM 136 mmol/L (136-145)
[2017-09-23 13:14] LABS: ALB/GLOB RATIO 0.8 (0.9-2); ALKALINE PHOSPHATASE 67 U/L (45-117)
== END | disposition home or self-care (01) ==
LOC: C.LABMFLN 10:39
PROVIDERS: ATTEND Physician Assistant
DX: J18.9 Pneumonia, unspecified organism (principal)

== ENCOUNTER → 2017-10-03 | Day surgery (SDC) | payer OTHER, BC ==
--- NOTE | 2017-09-25 15:07 | HISTORY & PHYSICAL EXAMINATION ---
DATE OF ADMISSION: 10/13/2017 REASON FOR BRONCHOSCOPY: Persistent chest congestion, cough, abnormal CT scan of the chest in a patient with a history of bronchiectasis and chronic asthmatic bronchitis. HISTORY OF PRESENT ILLNESS: An 81-year-old white female who has had a history of chronic cough. She has a past medical history of atrial fibrillation, coronary artery disease, hypertension and hypothyroidism and is a lifelong nonsmoker, although has had secondary exposure. She was initially established with our practice on August 2014 in followup of a chest radiograph that was abnormal. CAT scan on 08/05/2014 showed changes of central bronchiectasis with peribronchial cuffing and patchy ill-defined alveolar densities in the peripheral right upper lobe, left upper lobe and left apex. A 9 mm opacity at that time was seen at the right lung base, a PET/CT scan at that time showed low level increasing metabolic activity of several parenchymal infiltrative changes of bilateral lungs and further investigation of chronic cough with bronchoscopy was carried out by myself with lavage growing out Aspergillus fumigatus. Cytology for malignancy was negative. Two courses of doxycycline and prednisone were tried with improvement in daily cough. On 02/27/2015 a new pleural based lesion on the lateral aspect of the left mid lung field with improving nodular density again, considered pleural base on right. The pulmonary apices appeared fibrotic and there were calcific changes with several areas of vague nodularity that was stable. Second bronchoscopy in 2013 showed significant mucoviscous secretions as well as bronchomalacia and mucosal inflammation. Cultures grew out Aspergillus [place]. CAT scan on 12/12/2015 showed unchanged mediastinal shotty adenopathy. Pulmonary apices once again demonstrated improvement in parenchymal and pleural-based nodularity but a waxing/waning pulmonary nodularity and reticular nodular infiltrative changes were seen. CT scan in February of 2016 again showed a waxing and waning appearance of the pulmonary nodules with upper lung zone predominance, but increased in size from 10/28/2015 to 02/28/2016. PFTs at that time showed an FEV1/FVC ratio of 91%. The vital capacity was 90% of predicted. She had a 2-week history of clinical cough at that time and once again was prescribed a vibration vest along with aerosolized bronchodilator, budesonide via nebulizer treatment was prescribed as well. She was then seen in followup by Simba Alcazar in April of 2017. The patient did have a history of radon exposure at home, she was stable and using oxygen at night. Occasional cough, but overall had been doing well. She was continued on her nebulizer treatments with budesonide and Brovana, using DuoNeb solution p.r.n. She then recurred with cough without hemoptysis. She saw Simba Alcazar in August of 2017, still complaining of cough and congestion and a repeat CAT scan of the chest was ordered. CAT scan of the chest without contrast was done on August 31, once again associated with symptoms of progressive cough and this film was compared to the study of 01/05/2017, showing innumerable tiny miliary nodules with a chronic infectious/inflammatory process favored, stable area of focal pulmonary consolidation within the right upper lobe and changes of mild bronchiectasis within the left lobe. There was stable mild mediastinal lymphadenopathy and interval development of marked narrowing of the bronchus intermedius. White count was 6600, 8.4% peripheral eosinophils noted. Aspergillus antibodies were negative previously. Fungitell was negative. Cultures for acid fast bacilli in the past were negative as well. The patient is scheduled for bronchoscopic evaluation. PAST MEDICAL HISTORY: Pertinent for arthritis, paroxysmal atrial fibrillation, depression, dyslipidemia, hypertension, hypothyroidism, osteopenia. She has had a previous , hysterectomy with a strong family history of cardiac disease. She has 3 children, one lives in [place], one in [place] and one locally. 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 ALLERGIES: PENICILLIN. DETAILS OF HER MEDICATION: I refer to current and past record. PHYSICAL EXAMINATION: GENERAL: Well-developed elderly white female, coughing sporadically. CURRENT VITAL SIGNS: Stable. BMI was 32.9, blood pressure 120/68, heart rate 63 and regular, respiratory rate 18, O2 sat 92% on room air, temperature 97.5. SKIN: Without lesion. HEENT: Atraumatic, normocephalic. PERRLA, EOMI. Conjunctivae pale. Sclerae nonicteric. Fundi poorly visualized. NECK: Neck veins are not distended at 45 degrees. No obvious adenopathy in the supra or infraclavicular areas. LUNGS: Some crackles at the bases. CARDIAC: Regular rate and rhythm. I do not appreciate a gallop. ABDOMEN: Soft, scaphoid. No evidence for hepatosplenomegaly. EXTREMITIES: No pedal edema, clubbing or cyanosis. NEUROLOGIC: Intact. No lateralizing signs. IMAGING DATA: CT scan as noted. OVERALL ASSESSMENT: An 81-year-old with persistent cough, miliary type picture with progressive innumerable nodules, right greater than left with chronic changes at the right base and changes of bronchiectasis and further narrowing of the right bronchus intermedius associated with cough. PLAN: Bronchoscopy with BAL and possible transbronchial biopsy. We will also order QuantiFERON gold serology and further studies pending result of the bronchoscopic intervention.
[2017-10-03] VITALS (12 sets, daily range): BP systolic 113–187; BP diastolic 67–108; PULSE 59–96; TEMP 36.5–36.7; O2SAT 2–100; Ht 156.2 cm; Wt 81.3 kg
[~2017-10-03] VITALS: Ht 156.2 cm; Wt 81.3 kg
[~2017-10-03] MED LIST changes: +DEXTROSE 5% 1000ML 1,000 ML IV SCH; +FENTANYL CITRATE INJ 50 MCG/1 ML 2 ML VIAL IV ONE; +LEVALBUTEROL 1.25MG/3ML NEB INH ONE; +LIDOCAINE 4% W/AFRIN NASAL SOLN 4ML ONE; +LIDOCAINE HCL 2% LOCAL 50ML VIAL INFIL ONE; +MIDAZOLAM HCL 5 MG/ML 1 ML VIAL IV ONE; +NURSING VERBAL MED ORDER ONE
[2017-10-03 09:59] LABS: INR 1.1 (0.9-1.1); PARTIAL THROMBOPLASTIN RATIO 1.1; PROTHROMBIN TIME (PATIENT) 11.5 SECONDS (9.0-12.0)
--- NOTE | 2017-10-03 10:45 | History & Physical Bridge Note ---
H&P Re-Evaluation Bridge Note: I have examined the patient, reviewed the History & Physical and in the interval since the performance of the History & Physical I have noted the following changes of clinical significance: No changes noted
--- NOTE | 2017-10-03 10:46 | Procedure Note ---
Pre-Mod Sedation Assessment General Date of Moderate Sedation: Oct 03, 2017. Vital Signs: Vital Signs Past 12 Hours Date Time Temp Pulse Resp B/P (MAP) Pulse Ox O2 Delivery O2 Flow Rate FiO2 10/03/17 09:44 36.5 69 24 150/80 (103) 93 Room Air Pre-Sedation Airway Assessment Oral Cavity: WNL Short Thick Neck: No Hx of Sleep Apnea: No Smoking Status: Never Smoker Mallampati Classification: Class I ASA Classification: Class II Procedure Planning Contraindications-for Mod Sed: None Yes Notes The planned sedation has been discussed with the patient and consent obtained. I have identified the patient, determined the appropriateness of sedation and have assessed the patient immediately prior to the procedure. All medicine(s) and interventions are by my order.
--- NOTE | 2017-10-03 12:08 | Discharge Instructions ---
Discharge Instructions Date of Service Oct 03, 2017. Admission Reason for Admission: Broncheactisis,Cough,Chronic Asthmatic Bronchitis Discharge Discharge Diagnosis / Problem: Chronic Mucopurulent Bronchitis Discharge Goals Goal(s): Diagnostic testing Activity Recommendations Activity Limitations: resume your previous activity Lifting Limitations: none Exercise/Sports Limitations: none May Resume Sexual Activity: when tolerated Shower/Bathe: no limitations Driving or Machine Use: resume 1 day after discharge none ACTIVITY RECOMMENDATIONS: * Rest today, resume normal activity tomorrow. * Do not drive today. SPECIAL CARE INSTRUCTIONS: * Call your physician if you experience any chest or shoulder pain, fever, coughing, spitting up blood (more than 2 teaspoons) or excessive shortness of breath. * Remove dressing from IV site (where needle was placed into the vein) after 2 hours. Apply a warm, moist compress to site if irritation occurs. Call physician if site becomes red or painful to touch. FOLLOW UP VISIT: * Keep any scheduled doctor appointments. . Current Hospital Diet Patient's current hospital diet: Discharge Diet Recommended Diet: Regular Diet Fluid Restriction: None Pending Studies Studies pending at discharge: no Medical Emergencies . Who to Call and When: Medical Emergencies: If at any time you feel your situation is an emergency, please call 911 immediately. . Non-Emergent Contact Non-Emergency issues call your: Crusher Machine Operator Call Non-Emergent contact if: temperature is above 101 ACTIVITY RECOMMENDATIONS: * Rest today, resume normal activity tomorrow. * Do not drive today. SPECIAL CARE INSTRUCTIONS: * Call your physician if you experience any chest or shoulder pain, fever, coughing, spitting up blood (more than 2 teaspoons) or excessive shortness of breath. * Remove dressing from IV site (where needle was placed into the vein) after 2 hours. Apply a warm, moist compress to site if irritation occurs. Call physician if site becomes red or painful to touch. FOLLOW UP VISIT: * Keep any scheduled doctor appointments. . . "Provider Documentation" section prepared by Supa Herrera. . VTE Core Measure Inpt VTE Proph given/why not?: Warfarin (Coumadin)
--- NOTE | 2017-10-03 14:15 | OPERATIVE REPORT ---
DATE OF OPERATION: 10/03/2017 PROCEDURE: Fiberoptic bronchoscopy with bronchoalveolar lavage. INDICATIONS: Chronic cough with abnormal CT scan of the chest. ANESTHESIA PREOPERATIVELY: None. ANESTHESIA DURING PROCEDURE: 4 mg IV Versed, 50 mcg IV fentanyl, 20 mL 2% Xylocaine spray above and below the cords, 4% viscous Xylocaine intranasally. DESCRIPTION OF PROCEDURE: Fiberoptic bronchoscope was inserted into the right naris with minimal difficulty and passed to the level of the true vocal cords. The cords appeared to approximate normally with phonation without evidence of lesions or paralysis. The area was anesthetized with 2% Xylocaine spray and the scope was then introduced in the trachea and right and left tracheobronchial tree. The marco was sharp. The right upper lobe, the apical posterior and anterior segments, bronchus intermedius, right middle lobe and the medial and lateral segments and all basilar segments right lower lobe were found to be free of endobronchial lesions. A moderate amount of mucopurulent secretion was lavaged from the right upper lobe until clear with severe erosive inflammatory mucosal change seen throughout the right tracheobronchial tree and most pronounced at the takeoff of the right upper lobe lobar segments. 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 The left tracheobronchial tree was explored and no endobronchial lesion was seen. Left upper lobe, the apical-posterior and anterior segments, lingular subdivision and left lower lobe with its respective basilar segments were found to be free of endobronchial lesions down to subsegmental bronchi. The procedure was terminated. The patient demonstrated severe paroxysms of coughing, but no sign of respiratory distress. The procedure was terminated and patient was given a nebulizer treatment with Xopenex 1.25 mg and transferred to the medical treatment unit hemodynamically stable with no signs of respiratory compromise. Will await microbiological and cytologic examination of the bronchial washings. I attest to the content of the Intraoperative Record and any orders documented therein. Any exception s are noted below.
[2017-10-06 11:46] LABS: HERPES SIMPLEX CULT SOURCE OTHER-R UPPER LOBE W; HERPES SIMPLEX VIRUS CULT NOT ISOLATED (NOT ISOLATED)
== END | disposition home or self-care (01) ==
LOC: C.ACU 09:08
PROVIDERS: ATTEND Internal Medicine Pulmonary Disease
DX: J45.901 Unspecified asthma with (acute) exacerbation (principal); J47.9 Bronchiectasis, uncomplicated; I48.0 Paroxysmal atrial fibrillation; I10 Essential (primary) hypertension; E78.5 Hyperlipidemia, unspecified; E03.9 Hypothyroidism, unspecified; F32.9 Major depressive disorder, single episode, unspecified; M85.80 Other specified disorders of bone density and structure, unspecified site; M19.90 Unspecified osteoarthritis, unspecified site; Z88.0 Allergy status to penicillin; Z79.899 Other long term (current) drug therapy

== ENCOUNTER → 2017-12-06 | Outpatient (CLI) | payer OTHER, BC ==
[~2017-12-06] MED LIST changes: -DEXTROSE 5% 1000ML 1,000 ML IV SCH; -FENTANYL CITRATE INJ 50 MCG/1 ML 2 ML VIAL IV ONE; -LEVALBUTEROL 1.25MG/3ML NEB INH ONE; -LIDOCAINE 4% W/AFRIN NASAL SOLN 4ML ONE; -LIDOCAINE HCL 2% LOCAL 50ML VIAL INFIL ONE; -LVQ750 PO; -MIDAZOLAM HCL 5 MG/ML 1 ML VIAL IV ONE; -NURSING VERBAL MED ORDER ONE; -SIMV-150 PO
[2017-12-06 17:59] LABS: BASO % 0.6 %; BASO ABS # 0.03 K/uL (0-0.2); EOS % 8.9 %; EOS ABS # 0.48 K/uL (0-0.5); HEMATOCRIT 38.5 % (37-47); HEMOGLOBIN 12.5 g/dL (12.0-16.0); IG# 0.02 K/uL (0.00-0.02); LYMPH % 30.4 %; LYMPH ABS # 1.65 K/uL (1.2-3.4); MEAN CELL VOLUME 94.1 fL (80-100); MEAN CORPUSCULAR HEMOGLOBIN 30.6 pg (25-34); MEAN CORPUSCULAR HGB CONC 32.5 g/dl (32-36); MEAN PLATELET VOLUME 9.6 fL (7.4-10.4); MONO % 12.2 %; MONO ABS # 0.66 K/uL (0.11-0.59); NEUT % 47.5 %; NEUT ABS # 2.58 K/uL (1.4-6.5); PLATELET COUNT 297 K/uL (130-400); RED CELL DISTRIBUTION WIDTH CV 15.3 % (11.5-14.5); RED CELL DISTRIBUTION WIDTH SD 51.9 fL (36.4-46.3); WHITE BLOOD COUNT 5.42 K/uL (4.8-10.8)
[2017-12-06 18:05] LABS: ALBUMIN 2.9 gm/dl (3.4-5.0); ALT/SGPT 15 U/L (12-78); BLOOD UREA NITROGEN 14 mg/dl (7-18); CALCIUM 8.4 mg/dl (8.5-10.1); CARBON DIOXIDE 30 mmol/L (21-32); CREATININE 0.63 mg/dl (0.60-1.20); GLUCOSE 92 mg/dl (70-99); POTASSIUM 4.2 mmol/L (3.5-5.1); SODIUM 139 mmol/L (136-145)
[2017-12-06 18:09] LABS: ALKALINE PHOSPHATASE 50 U/L (45-117); AST/SGOT 15 U/L (15-37); TOTAL PROTEIN 6.8 gm/dl (6.4-8.2)
== END | disposition home or self-care (01) ==
LOC: C.LABMFLN 11:50
PROVIDERS: ATTEND Internal Medicine Pulmonary Disease
DX: J47.9 Bronchiectasis, uncomplicated (principal)

== ENCOUNTER → 2017-12-15 | Outpatient (CLI) | payer OTHER, BC ==
--- NOTE | 2017-12-15 12:24 | DIAGNOSTIC IMAGING REPORT ---
CHEST 2 VIEWS ROUTINE CLINICAL HISTORY: Cough. Chronic asthmatic bronchitis. COMPARISON STUDY: Chest radiograph June 14, [address] August 31, 2017. FINDINGS: Lung volumes are normal. No pneumothorax or pleural effusion is noted. There is no evidence for pulmonary edema. Mild cardiomegaly is unchanged. Reticulonodular interstitial thickening, most evident within the lower lungs and right midlung is unchanged. IMPRESSION: No change in appearance of the chest with stable bibasilar and right midlung reticulonodular interstitial thickening. Electronically signed by: Nir Zamora M.D. 12/15/2017 12:23 PM Dictated Date/Time: 12/15/2017 12:21 PM
== END | disposition home or self-care (01) ==
LOC: C.RAD1850 12:01
PROVIDERS: ATTEND Internal Medicine Pulmonary Disease
DX: J44.9 Chronic obstructive pulmonary disease, unspecified (principal); R05 Cough